=== PATIENT | female | born 1940 | race Caucasian/White ===

== ENCOUNTER → 2017-11-27 06:20 | Outpatient (CLI) | payer MEDICARE, SELFPAY ==
--- NOTE | 2017-11-27 06:28 | CDU_ITS ---
Reason For Study: CAROTID STENOSIS Rt. Velocities/BP Lt. Velocities/BP Prox CCA 85.0/11.7 cm/sec. Prox CCA 98.5/11.7 cm/sec. Mid CCA 78.6/15.8 cm/sec. Mid CCA 87.9/17.0 cm/sec. Dist CCA 65.7/14.7 cm/sec. Dist CCA 97.9/22.9 cm/sec. Prox ICA 103.0/20.5 cm/sec. Prox ICA 93.8/21.7 cm/sec. Mid ICA 117.0/31.1 cm/sec. Mid ICA 112.0/27..4 cm/sec. Dist ICA 106.0/23.6 cm/sec. Dist ICA 97.2/35.4 cm/sec. Rt. ICA/CCA = 117.0/78.6=1.5. Lt. ICA/CCA = 112.0/87.9=1.3. Prox ECA 221.0/13.1 cm/sec. Prox ECA 226.0/14.7 cm/sec. Rt. Vert. 47.5/8.25 cm/sec. Lt. Vert. 50.3/11.4 cm/sec. Right Extracranial There is heterogeneous, irregular atherosclerotic plaque noted in the right common carotid artery. There is heterogeneous, irregular atherosclerotic plaque noted in the right internal carotid artery. The atherosclerotic plaque causes acoustic shadowing. There is heterogeneous, irregular atherosclerotic plaque noted in the right external carotid artery. The atherosclerotic plaque causes acoustic shadowing. Antegrade flow is noted in the right vertebral artery. Left Extracranial There is heterogeneous, irregular atherosclerotic plaque noted in the left common carotid artery. There is heterogeneous, irregular atherosclerotic plaque noted in the left internal carotid artery. There is heterogeneous, irregular atherosclerotic plaque noted in the left external carotid artery. Antegrade flow is noted in the left vertebral artery. Procedure Carotid Duplex 14668. The exam was diagnostic. The study was technically difficult. Exam performed in department. Interpretation Summary Mild (<50%) stenosis right extracranial internal carotid. Mild (<50%) stenosis left extracranial internal carotid. Flow within the vertebral arteries is antegrade bilaterally. Ordering Physician: Vicki Cool Referring Physician: Vicki Cool Performed By: Penny Clemens, JEANNIE, RVT
--- NOTE | 2017-11-27 09:06 | STRESSREP ---
Stress Test Report Pharmacologic myocardial perfusion stress test. 77-year-old lady with a history of chest pain. Locations: Lotrel hydralazine vitamin D. Stress protocol: Resting EKG demonstrates normal sinus rhythm with a rate of 76 bpm normal intervals are noted. Blood pressure at rest was 164/92 mmHg. 0.4 mg of regadenoson was infused per usual protocol followed by rapid intravenous saline flush injection. Continuous EKG monitoring was performed. The patient maintained sinus rhythm throughout the recording with a maximum heart rate of 104 bpm which was 72% maximum predicted heart rate and a maximum workload of 1 metabolic equivalent. At rest there were no ST or T-wave changes noted to suggest abnormal flow reserve and at peak infusion no ST or T-wave changes were noted suggest abnormal flow reserve. No clinical angina was noted the final blood pressure was 158/74. Myocardial perfusion protocol. 14.4 mCi of technetium 99m sestamibi was injected at rest. 0.4 mg of regadenoson was infused per usual protocol. Peak infusion 44.8 mCi of technetium 99m sestamibi was injected stress images were obtained stress and rest images were reconstructed and compared in the short axis vertical long and horizontal long axis. Gated images were also obtained pre- Perfusion SPECT analysis: Review of the stress images demonstrate normal uptake of tracer noted in all areas of the myocardium. The resting images similarly demonstrate normal uptake of tracer noted in all areas of the myocardium. No areas of reversibility are noted suggest ischemia and no previous infarct is noted. Gated SPECT analysis: The gated ejection fraction was noted to be 71%. Conclusion: Normal pharmacologic myocardial perfusion stress test with no evidence of ischemia. Preserved ejection fraction.
== END ==
PROVIDERS: Family Provider Internal Medicine; PCP Internal Medicine; Visit Provider Internal Medicine
DX: I65.23 Occlusion and stenosis of bilateral carotid arteries (principal); R68.89 Other general symptoms and signs; I11.9 Hypertensive heart disease without heart failure; R94.31 Abnormal electrocardiogram [ECG] [EKG]
CPT/HCPCS: 78452; 93017; 93880; A9500; A4216; J2785

== ENCOUNTER → 2017-11-30 09:13 | Outpatient (CLI) | payer MEDICARE, SELFPAY ==
--- NOTE | 2017-11-30 09:17 | RDU_ITS ---
Reason For Study: HTN Right Renal Artery Left Renal Artery Right renal artery ostium 164/41.6 Left renal artery ostium 165/37.9 RSV/EDV. PSV/EDV. Right renal artery proximal Left renal artery proximal PSV/EDV 130/37.9 PSV/EDV. 166/25.7 . Right renal artery mid 175/37.9 Left renal artery mid 164/36.7 PSV/EDV. PSV/EDV . Right renal artery distal 159/36.7 Left renal artery distal 101/19.4 PSV/EDV. PSV/EDV. Right Renal Parenchyma Left Renal Parenchyma Upper Pole Medula 26.9/9.78 Left upper pole medulla 34.8/12.8 PSV/EDV. PSV/EDV . Right upper pole medulla EDR .36 . Left upper pole medulla EDR .37 . Right upper pole medulla R.I. .64 . Left upper pole medulla R.I. .63 . Upper Mane Cortx 39.2/11.4 PSV/EDV. UP Cortex 28.7/11.0 PSV/EDV. Right upper pole cortex EDR .29 . Left upper pole cortex EDR .38 . Right upper pole cortex R.I. .71 . Left upper pole cortex R.I. .62 . Right lower Pole medulla 29.6/10.0 Left lower Pole medulla 36.0/10.9 PSV/EDV . PSV/EDV . Right lower pole medulla EDR .34 . Left lower pole medulla EDR .3 . Right lower pole medulla R.I. .66 . Left lower pole medulla R.I. .7 . Lower Pole Cortex 28.7/8.66 Lower Pole Cortx 25.1/8.66 PSV/EDV. PSV/EDV. Left lower pole cortex EDR .35 . Right lower pole cortex EDR .3 . Left lower pole cortex R.I. .65 . Right lower pole cortex R.I. .7 . Left Renal Hilar Right Renal Hilar Left hilar acceleration time 73 Right hilar acceleration time 66 m/sec. m/sec. LT Hilar avg 87.1/17.6 PSV/EDV . Right Hilar avg 83.1/21.4 PSV/EDV. Left Renal Dimensions Right Renal Dimensions Left kidney size 12.5 cm . Right kidney size 12.9 cm . Left cortical dimension 1.58 cm . Right cortical dimension 1.67 cm . Aorta Proximal abdominal aorta 1.23 x 1.28 cm . Proximal abdominal aorta peak systolic velocity is 103 cm/sec . Distal abdominal aorta 1.08 x 1.03 cm . Distal abdominal aorta peak systolic velocity is 138 cm/sec . Interpretation Summary 1. Bilateral renal arteries with <60% stenosis. Ordering Physician: Vicki Cool Performed By: Garry Lombardi RVT
== END ==
PROVIDERS: Family Provider Internal Medicine; PCP Internal Medicine; Visit Provider Internal Medicine
DX: I10 Essential (primary) hypertension (principal)
CPT/HCPCS: 93975

== ENCOUNTER → 2018-01-10 12:36 | Outpatient (CLI) | payer MEDICARE, SELFPAY ==
--- NOTE | 2018-01-10 12:39 | ECHOD_ITS ---
Reason For Study: HYPERTENSION Procedure This was a 2D Doppler, Color Flow transthoracic echocardiogram. Exam performed in department. Left Ventricle Normal size and thickness. The estimated ejection fraction is 65 %. Stage 1 diastolic dysfunction. No regional wall motion abnormalities noted. Right Ventricle Normal size and thickness. Normal systolic function. Atria The left atrium is severely enlarged. Normal right atrium. Normal atrial septum. Mitral Valve Mild diffuse mitral valve thickening. Severe mitral annular calcification extending into the posterior leaflet. Trivial mitral valve insufficiency. Tricuspid Valve Normal tricuspid valve. Trivial tricuspid valve insufficiency. Right ventricular systolic pressure estimated to be 32 mmHg. Aortic Valve Trisinus/trileaflet aortic valve. Mild diffuse aortic valve thickening. Mild focal aortic valve thickening. Mild restriction of the aortic valve. Mild aortic stenosis. Pulmonic Valve Normal pulmonic valve. Great Vessels Normal aortic root. Normal arch. Normal inferior vena cava. Inferior vena cava collapse with sniff. Pericardium/Pleural No pericardial effusion. MMode/2D Measurements & Calculations LVIDd: 4.9 cm IVSd: 0.99 cm LVOT diam: 2.0 cm LVIDs: 3.2 cm LVPWd: 1.1 cm LVOT area: 3.2 cm2 RVDd: 3.2 cm FS: 34.3 % Ao root diam: 2.9 cm LAV(MOD-bp): 96.5 ml LA A4 area: 25.9 cm2 LA dimension: 5.0 cm LAV(MOD-bp) Indexed: 44.4 ml/m2 LAV(MOD-sp2): 101.2 ml LAV(MOD-sp4): 83.5 ml RA A4 area: 15.3 cm2 Doppler Measurements & Calculations MV E max santiago: 115.2 cm/sec Lat Peak E' Santiago: 9.0 cm/sec Med Peak E' Satniago: 6.3 cm/sec MV A max santiago: 136.5 cm/sec E/E' lat: 12.8 E/E' med: 18.2 MV E/A: 0.84 Ao V2 max: 233.4 cm/sec LV V1 max: 126.9 cm/sec SV(LVOT): 101.4 ml Ao max P.8 mmHg LV V1 max P.4 mmHg Ao V2 mean: 174.3 cm/sec LV V1 mean P.9 mmHg Ao mean P.9 mmHg LV V1 mean: 96.6 cm/sec Ao V2 VTI: 56.0 cm LV V1 VTI: 31.7 cm KAREN(I,D): 1.8 cm2 KAREN(V,D): 1.7 cm2 PA V2 max: 109.9 cm/sec TR max santiago: 245.7 cm/sec TR max P.3 mmHg Interpretation Summary The estimated ejection fraction is 65 %. Stage 1 diastolic dysfunction. The left atrium is severely enlarged. Trivial mitral valve insufficiency. Trivial tricuspid valve insufficiency. Right ventricular systolic pressure estimated to be 32 mmHg. Mild aortic stenosis. Compared to echo report dated 04/27/2006, no appreciable changes noted. Ordering Physician: Dilia Bonilla Referring Physician: Vicki Cool M.D. Performed By: Penny Clemens, JEANNIE, RVT
== END ==
PROVIDERS: Family Provider Internal Medicine; PCP Internal Medicine; Visit Provider Nurse Practitioner
DX: I51.9 Heart disease, unspecified (principal); R94.31 Abnormal electrocardiogram [ECG] [EKG]
CPT/HCPCS: 93306

== ENCOUNTER → 2018-03-21 08:52 | Outpatient (CLI) | payer MEDICARE, SELFPAY | PROVIDERS: Family Provider Internal Medicine; PCP Internal Medicine; Visit Provider Internal Medicine | DX: Z12.31 Encounter for screening mammogram for malignant neoplasm of breast (principal); Z78.0 Asymptomatic menopausal state; M85.80 Other specified disorders of bone density and structure, unspecified site | CPT/HCPCS: 77063; 77067; 77080 ==

== ENCOUNTER 2018-10-17 11:17 | Emergency (ER) | payer MEDICARE, SELFPAY ==
[2018-10-17 11:19] VITALS: BP 164/73; PULSE 90; RESP 17; TEMP 36.5; O2SAT 95; BMI 46.7
--- NOTE | 2018-10-17 11:35 | ED.VIS.GEN ---
History of Present Illness Chief Complaint: Lower Extremity Injury Detail of Chief Complaint: left low back pain Informant: Patient Onset: Weeks - 2-3 Context: Gradual Onset Timing: Continuous Quality: ache Location: left low back Current Severity: Moderate Maximum Severity: Moderate Worsened by: movement Relieved by: rest. icy hot & Biofreeze temporarily. Associated Symptoms: see below Narrative: No radiation into lower extremities. No bowel or bladder dysfunction. No saddle or lower extremity anesthesias/paresthesias. No abdominal/flank discomfort. No injury near the time of onset. States she saw a chiropractor and had some adjustments done which involve dropping the table a couple times, this helped with the discomfort for that day but it gradually progressed/worsened. No known history of cancer or osteoporosis. Past Medical History - Allergies and Home Meds Allergies/Adverse Reactions: Allergies No Known Allergies Allergy (Verified 10/17/18 11:19) Primary Care Physician: Vicki Cool DO [Primary Care Provider] - Smoking Status: Never smoker Review of Systems Gastrointestinal: Denies: Abdominal pain, Nausea, Vomiting Genitourinary: Denies: Dysuria, Hematuria, Frequency Musculoskeletal: Reports: Back pain. Denies: Neck pain, Swelling, Extremity Pain Skin: Denies: Rash, Wounds Neurological: Denies: Headache, Weakness, Parasthesia, Numbness Physical Exam Vital Signs/Narrative: Vital Signs Temp Pulse Resp BP Pulse Ox 10/17/18 11:19 97.7 F L 90 17 164/73 H 95 Inital Vital Signs reviewed: Yes General: Well nourished, Well developed, Obese, No Acute Distress Head: Normocephalic, Atraumatic Abdomen: Soft, Nontender, Nondistended, Normal bowel sounds Back: Nontender - affected area is left SI joint. no surrounding tenderness., Normal Inspection, - - no rash/skin lesions. Negative for: CVA tenderness, Spinal tenderness Extremities: Nontender, No edema, - - neg BLE straight leg raises while sitting. normal symmetric 2+/4 DP pulses. Very subtle length discrepancy between BLE; RLE slightly longer; less than 1cm.. Negative for: Edema, Calf Tenderness Skin: Normal color, No rash, No Trauma Neurological: Alert, Oriented x3, Cranial nerves II-XII grossly intact, Normal Strength, Normal Sensation, Normal DTR, Normal Gait Psychological: Normal affect, Normal Mood Diagnostic/Tx/Re-eval Impressions Sacrum and Coccyx X-Ray 10/17/18 11:45 IMPRESSION: Normal x-rays of the sacrum and coccyx. Electronically Signed: Naman Singh, at 12:37 EDT , Service support , Lumbar Spine X-Ray 10/17/18 11:58 IMPRESSION: Normal x-ray examination of the lumbar spine. Electronically Signed: Naman Singh, at 12:39 EDT , Service support , 10/17/18 11:45 Sacrum-Coccyx min 2 Views [RAD] Stat 10/17/18 11:58 Lumbar Spine 2 or 3 Views [RAD] Stat Laboratory Results 10/17/18 12:20 Urine Color Yellow Urine Clarity Sl. Cloudy Urine pH 6.5 Ur Specific [place] 1.015 Urine Protein Negative Urine Glucose (UA) Normal Urine Ketones Negative Urine Occult Blood Negative Urine Nitrite Negative Urine Bilirubin Negative Urine Urobilinogen Normal Ur Leukocyte Esterase 25 H Urine RBC 0 SEEN Urine WBC 0-5 SEEN Ur Squamous Epith Cells 0-5 SEEN Urine Bacteria 1+ Urine Mucus 0 SEEN - Medical Decision Making X-rays show nothing acute, urinalysis is negative. I suspect this is all musculoskeletal, and not renal or urinary in nature. My suspicion is that she has sacroiliac joint dysfunction. I think it is reasonable that she continue chiropractic treatments, she may also follow-up with her doctor and physical therapy could help with this as well. She is wanting something more for pain, she drove herself however. We discussed options. She is okay with a short supply of some [place]. Advised to follow-up. ED Disposition - Plan for ED Patient: Disposition: Home or Assisted Living Diagnosis: Sacroiliac joint dysfunction of left side Instructions: ED Sacroiliitis, Anatomy of the Sacroiliac Joint Prescriptions: Hydrocodone Bitart/Apap 5-325 [[place] 5MG-325MG] 1 tablet PO Q6H PRN PRN 3 Days #12 tablet PRN Reason: Pain Referrals: Vicki Cool, [Primary Care Provider] - 1 Week if not improving
--- NOTE | 2018-10-17 11:40 | ED.DCSUM_ITS ---
History of Present Illness Chief Complaint: Lower Extremity Injury Detail of Chief Complaint: left low back pain Informant: Patient Onset: Weeks - 2-3 Context: Gradual Onset Timing: Continuous Quality: ache Location: left low back Current Severity: Moderate Maximum Severity: Moderate Worsened by: movement Relieved by: rest. icy hot & Biofreeze temporarily. Associated Symptoms: see below Narrative: No radiation into lower extremities. No bowel or bladder dysfunction. No saddle or lower extremity anesthesias/paresthesias. No abdominal/flank discomfort. No injury near the time of onset. States she saw a chiropractor and had some adjustments done which involve dropping the table a couple times, this helped with the discomfort for that day but it gradually progressed/worsened. No known history of cancer or osteoporosis. Past Medical History - Allergies and Home Meds Allergies/Adverse Reactions: Allergies No Known Allergies Allergy (Verified 10/17/18 11:19) Primary Care Physician: Vicki Cool DO [Primary Care Provider] - Smoking Status: Never smoker Review of Systems Gastrointestinal: Denies: Abdominal pain, Nausea, Vomiting Genitourinary: Denies: Dysuria, Hematuria, Frequency Musculoskeletal: Reports: Back pain. Denies: Neck pain, Swelling, Extremity Pain Skin: Denies: Rash, Wounds Neurological: Denies: Headache, Weakness, Parasthesia, Numbness Physical Exam Vital Signs/Narrative: Vital Signs Temp Pulse Resp BP Pulse Ox 10/17/18 11:19 97.7 F L 90 17 164/73 H 95 Inital Vital Signs reviewed: Yes General: Well nourished, Well developed, Obese, No Acute Distress Head: Normocephalic, Atraumatic Abdomen: Soft, Nontender, Nondistended, Normal bowel sounds Back: Nontender - affected area is left SI joint. no surrounding tenderness., Normal Inspection, - - no rash/skin lesions. Negative for: CVA tenderness, Spinal tenderness Extremities: Nontender, No edema, - - neg BLE straight leg raises while sitting. normal symmetric 2+/4 DP pulses. Very subtle length discrepancy between BLE; RLE slightly longer; less than 1cm.. Negative for: Edema, Calf Tenderness Skin: Normal color, No rash, No Trauma Neurological: Alert, Oriented x3, Cranial nerves II-XII grossly intact, Normal Strength, Normal Sensation, Normal DTR, Normal Gait Psychological: Normal affect, Normal Mood Diagnostic/Tx/Re-eval Impressions Sacrum and Coccyx X-Ray 10/17/18 11:45 IMPRESSION: Normal x-rays of the sacrum and coccyx. Electronically Signed: Naman Singh, at 12:37 EDT , Service support , Lumbar Spine X-Ray 10/17/18 11:58 IMPRESSION: Normal x-ray examination of the lumbar spine. Electronically Signed: Naman Singh, at 12:39 EDT , Service support , 10/17/18 11:45 Sacrum-Coccyx min 2 Views [RAD] Stat 10/17/18 11:58 Lumbar Spine 2 or 3 Views [RAD] Stat Laboratory Results 10/17/18 12:20 Urine Color Yellow Urine Clarity Sl. Cloudy Urine pH 6.5 Ur Specific [place] 1.015 Urine Protein Negative Urine Glucose (UA) Normal Urine Ketones Negative Urine Occult Blood Negative Urine Nitrite Negative Urine Bilirubin Negative Urine Urobilinogen Normal Ur Leukocyte Esterase 25 H Urine RBC 0 SEEN Urine WBC 0-5 SEEN Ur Squamous Epith Cells 0-5 SEEN Urine Bacteria 1+ Urine Mucus 0 SEEN - Medical Decision Making X-rays show nothing acute, urinalysis is negative. I suspect this is all musculoskeletal, and not renal or urinary in nature. My suspicion is that she has sacroiliac joint dysfunction. I think it is reasonable that she continue chiropractic treatments, she may also follow-up with her doctor and physical therapy could help with this as well. She is wanting something more for pain, she drove herself however. We discussed options. She is okay with a short supply of some [place]. Advised to follow-up. ED Disposition - Plan for ED Patient: Disposition: Home or Assisted Living Diagnosis: Sacroiliac joint dysfunction of left side Instructions: ED Sacroiliitis, Anatomy of the Sacroiliac Joint Prescriptions: Hydrocodone Bitart/Apap 5-325 [[place] 5MG-325MG] 1 tablet PO Q6H PRN PRN 3 Days #12 tablet PRN Reason: Pain Referrals: Vicki Cool, [Primary Care Provider] - 1 Week if not improving
--- NOTE | 2018-10-17 11:45 | RAD_ITS ---
STUDY: X-RAY - SACRUM/COCCYX REASON FOR EXAM: Female, 78 years old. Low back and hip pain for 2 weeks. TECHNIQUE: 3 view(s) of the sacrum and coccyx were obtained. COMPARISON: None. FINDINGS: Normal bilateral sacroiliac joints. Normal visualized sacral ala and fused sacral bodies. Normal sacrococcygeal junction with a normal angulation. Normal coccygeal segments. The presacral soft tissue structures are unremarkable. Atherosclerotic calcification of the abdominal aorta. RAD/Sacrum-Coccyx min 2 Views IMPRESSION: Normal x-rays of the sacrum and coccyx. Electronically Signed: Naman Singh, at 12:37 EDT , Service support ,
--- NOTE | 2018-10-17 11:58 | RAD_ITS ---
STUDY: X-RAY - LUMBAR SPINE REASON FOR EXAM: Female, 78 years old. Low back and hip pain. TECHNIQUE: 3 view(s) of the lumbar spine were obtained. COMPARISON: None FINDINGS: Normal lumbar lordosis. There is no substantial scoliosis. There is a normal alignment of the vertebrae. Normal vertebral bodies and endplates. Normal disc space heights. There is atherosclerotic calcification of the abdominal aorta without a demonstrated aneurysm. RAD/Lumbar Spine 2 or 3 Views IMPRESSION: Normal x-ray examination of the lumbar spine. Electronically Signed: Naman Singh, at 12:39 EDT , Service support ,
[2018-10-17 12:26] LABS: Mucous, Urine 0 SEEN /hpf (<or=2+); Red Blood Cells-Urine 0 SEEN /hpf (0-5)
[2018-10-17 12:38] LABS: Color, Urine Yellow (Yellow); Glucose, Dipstick Normal (Normal); Ketone-Dipstick Negative (Negative); Leukocyte Esterase-Dipstick 25 /ul (Negative); Nitrite-Dipstick Negative (Negative); Occult Blood-Urine Negative /ul (Negative); Protein-Dipstick Negative (Negative); Specific Gravity, Urine 1.015 (1.002-1.030); Urine Bilirubin Dipstick Negative (Negative); Urine Clarity Sl. Cloudy (Clear); Urine Urobilinogen Normal (Normal); Urine pH 6.5 (5.0 - 8.0)
[2018-10-17 12:45] LABS: Bacteria 1+ /hpf (None Seen); Squamous Epithelial Cells - UA 0-5 SEEN /hpf (5-10); White Blood Cells 0-5 SEEN /hpf (0-5)
[2018-10-17 14:10] VITALS: PULSE 87; RESP 17; O2SAT 96
== END 2018-10-17 14:10 | disposition home or self-care (01) ==
PROVIDERS: Emergency Provider Emergency Medicine; Family Provider Internal Medicine; PCP Internal Medicine
DX: M53.3 Sacrococcygeal disorders, not elsewhere classified (principal)
CPT/HCPCS: 72100; 72220; 81001; 99282

== ENCOUNTER 2018-11-12 15:30 | Outpatient (RCR) | payer MEDICARE, SELFPAY ==
--- NOTE | 2018-11-05 10:57 | HP.PTEVAL_ITS ---
Patient's Visit Information JOSE DAVID DARDEN is a 78 year old F referred to Physical Therapy by Vicki Cool DO with a diagnosis of GREATR TROCH BURSITIS, LBP, & LAT MUSCLE SPASM. Date of Evaluation: 11/05/18 Physical Therapist: Ale Martinez, PT, Cert MDT - Visit Plan Frequency: 2-3x /Week Duration: 4-6 Weeks Plan: LEFT GREATER TROCH US, POSTURE CORRECTION/STRENGTHENING, INSTRUCTION IN APPROPRIATE BODY MECHANICS AND ACTIVITY MODIFICATIONS. DLS STARTING WITH A NEUTRAL SPINE PROGRESSING ROM TOLERATED. ECHO LE ROM, STRETCHING AND STRENGTHENING. HEP INSTRUCTION. - Subjective Findings: Work/Leisure: RETIRED. PATIENT REPORTS SHE IS PRETTY ACTIVE AND LIKES WORKING AROUND THE HOUSE AND OUTSIDE. Present symptoms: LEFT LOW BACK, HIP AND SIDE PAIN. NO NUMBNESS OR TINGLING. Present since: ABOUT 4 WEEKS AGO. Pain Scale: WORST 8/10, LEAST 2/10. Currently: 2/10. Commenced as a result of: NO APPARENT REASON. GOT OUT OF BED ONE MORNING AND HIP WAS KILLING ME. Symptoms at onset: LEFT HIP. Worse: BENDING TO PUT SOMETHING IN THE OVEN OR TAKE IT OUT, GETTING IN/OUT OF CAR, PROLONGED STANDING, DOING DISHES, WALKING. Better: SITTING, HEAT, ICE, GIRDLE. Disturbed sleep: NO. Previous history/Previous treatment: THIS IS ALL NEW. NO HISTORY OF BACK OR HIP PROBLEMS. THIS EPISODE, PATIENT REPORTS SHE WENT TO A [facility] X 2 VISITS. SEEMED TO BE OK AFTER THE FIRST VISIT BUT AFTER SECOND VISIT PATIENT REPORTS SHE WAS IN EXCRUTIATING PAIN AND HAD TO CRAWL TO THE [facility]. WENT TO ED THEN 10/17/18. Coughing/sneezing/straining: NEGATIVE. Gait: TENDENCY TO FAVOR LLE. Difficulty initiating urinatin: NO. Accidents: NO. Unexplained weight loss: NO. Imaging: ED - 10/17/18: NORMAL SACRUM AND LUMBAR X-RAYS. NO HIP X-RAYS. PMH: HTN, GLAUCOMA. Recent major surgery: UNREMARKABLE. PLOF (Prior Level of Function): UNLIMITED - Objective Sitting/Standing Posture: POOR. Lordosis: REDUCED. Lateral shift: NO. Relevant shift: N/A. Other Observations: INDEP GAIT INTO PT WITH MILD LIMP LLE. NO AD'S. NO LOB. INDEP TRANSFER SIT TO STAND EASILY WITHOUT UE ASSIST. Motor deficit: ECHO LE STRENGTH 5/5 WITH MMT'ING EXCEPT RIGHT HIP 4/5 AND LEFT HIP 4-/5. Sensory deficit: NO. ROM deficit: MILD ECHO HIP FLEXOR TIGHTNESS. Reflexes: ECHO QUADS 1/2. UNALBE TO ELICIT ECHO ACHILLES DTR'S. Dural Signs: NEGATIVE ECHO LE'S. Lumbar mvmt loss: flex - MOD. ext - MOD. R SG - MOD. L SG - MOD. Core strength: POOR. Palpation: NO ACUTE TENDERNESS OR THORACIC, LUMBAR, PELVIC OR HIP REGIONS EXCEPT MILD TENDERNESS LEFT GREATER TROCH REGION. TREATMENT: US @ 1.5 W/CM2 X 8 MIN TO LEFT GREATER TROCH REGION TODAY WITH PATIENT IN RIGHT SDLY. - Goals Goal 1:: DECREASE C/O LEFT LOW BACK, SIDE AND HIP PAIN. Goal Time Frame: 4-6 Weeks Goal 2:: IMPROVE BENDING, STANDING AND WALKING FUNCTION Goal Time Frame: 4-6 Weeks Goal 3:: INSTRUCT IN PROPHYLAXIS Goal Time Frame: 4-6 Weeks - Rehabilitation Potential Rehabilitation Potential: Good - Anticipated Interventions Patient/Client Instruction: Educate patient on: Condition, Plan of Care, Risk Factors, Benefits of Fitness Program For the Purpose of:: To improve self management Therapeutic Exercise to Include: Strength training, Body mechanics, Postural training, Flexibilty training, Active ROM, Dynamic Lumbar Stabilization For the Purpose of:: To decrease pain, To increase ROM, To improve muscle performance and motor function, To increase tolerance to activity/condition/position, To improve ability of physical actions for home/community/work/leisure Cryotherapy (ice pack, ice massage): Yes Thermo therapy (hot pack): Yes Ultrasound (thermal/non thermal): Yes For the Purpose of:: To decrease pain, To improve nutrient delivery to tissue Thank you for the opportunity to evaluate your patient. For Medicare and Medicare HMO plans, please review the plan of care and approve it. It will need to be FAXED BACK to us at [phone] for Medicare purposes. For Medicare only, by signing this I certify the plan of care. Please let me know if there are questions or concerns regarding this plan of care. Physician Signature: Date:
--- NOTE | 2018-12-11 13:29 | HP.PT.NRP ---
HP - Discharge Summary (1) - Patient Information JOSE DAVID DARDEN was seen in my office for initial evaluation on 11/05/18. The following Plan of Care was established for this patient: Initial Frequency: 2-3x /Week Initial Duration: 4-6 Weeks - Anticipated Interventions Patient/Client Instruction: Educate patient on: Condition, Plan of Care, Risk Factors, Benefits of Fitness Program For the Purpose of:: To improve self management Therapeutic Exercise to Include: Strength training, Body mechanics, Postural training, Flexibilty training, Active ROM, Dynamic Lumbar Stabilization For the Purpose of:: To decrease pain, To increase ROM, To improve muscle performance and motor function, To increase tolerance to activity/condition/position, To improve ability of physical actions for home/community/work/leisure Cryotherapy (ice pack, ice massage): Yes Thermo therapy (hot pack): Yes Ultrasound (thermal/non thermal): Yes For the Purpose of:: To decrease pain, To improve nutrient delivery to tissue This patient was last seen in our office 11/12/18. Pertinent comments regarding their Physical therapy will appear below: This patient has not returned to Physical Therapy and is appropriate to return to MD for further follow-up as needed. At this point I will be discontinuing this patient from physical therapy. I would be happy to see this patient again in the future if found appropriate by the physician. Thank you! Ale Martinez PT, Cert MDT
== END 2018-11-12 19:00 | disposition home or self-care (01) ==
LOC: PT 15:30
PROVIDERS: Family Provider Internal Medicine; PCP Internal Medicine; Visit Provider Internal Medicine
DX: M70.60 Trochanteric bursitis, unspecified hip (principal); M54.5 Low back pain; M62.838 Other muscle spasm
CPT/HCPCS: 97035; 97162; 97530

== ENCOUNTER → 2018-11-21 09:43 | Outpatient (CLI) | payer MEDICARE, SELFPAY ==
--- NOTE | 2018-11-21 09:48 | RAD_ITS ---
STUDY: X-RAY - RIGHT KNEE REASON FOR EXAM: Female, 78 years old. Pain TECHNIQUE: 4 view(s) of the knee. Weightbearing. COMPARISON: None. FINDINGS: Normal visualized distal femur. Normal visualized proximal tibia and fibula. Normal proximal tibiofibular articulation. There is mild degenerative arthrosis of the medial femorotibial compartment. There is mild degenerative arthrosis of the lateral femorotibial compartment. There is mild degenerative arthrosis of the patellofemoral articulation. The soft tissue structures are unremarkable. RAD/Knee 4 or More Views IMPRESSION: Tricompartmental degenerative changes. Electronically Signed: Keyana Dominguez MD at 6:59 EDT , Service support ,
== END ==
PROVIDERS: Family Provider Internal Medicine; PCP Internal Medicine; Referring Provider Nurse Practitioner; Visit Provider Nurse Practitioner
DX: M25.561 Pain in right knee (principal)
CPT/HCPCS: 73564

== ENCOUNTER → 2018-12-18 07:35 | Outpatient (CLI) | payer MEDICARE, SELFPAY ==
--- NOTE | 2018-12-18 07:44 | CT_ITS ---
STUDY: CTA OF THE ABDOMINAL AORTA REASON FOR EXAM: Female, 78 years old. Splenic artery aneurysm RADIATION DOSAGE (If Supplied By Facility): CTDIvol = ( 25.94 ) mGy, DLP = ( 855.40 ) mGycm TECHNIQUE: Axial CT angiography multi-detector data acquisition was obtained through the abdomen following intravenous administration of 100ml IV Isovue 370. Axial images and MIP images were reconstructed from the axial data set. Post-processing of the angiographic images was performed, with multiplanar reformation and 3D reconstruction. Individualized dose optimization techniques were used for this CT. TECHNICAL QUALITY: Good COMPARISON: 04/12/2015. FINDINGS: Abdominal aorta: Stable atherosclerotic plaque. No abdominal aortic aneurysm or dissection. Celiac and superior mesenteric arteries: Stable atherosclerotic plaques. No significant narrowing. Inferior mesenteric artery: Patent. Right renal artery(arteries): Stable atherosclerosis with less than 50% diameter ostial narrowing. Left renal artery(arteries): Stable atherosclerosis with less than 50% diameter ostial narrowing. Stable 1.0 x 0.8 cm calcified splenic artery aneurysm at the level of the splenic hilum (image 34 series 2). Right common iliac artery: There is mild diffuse narrowing. Left common iliac artery: There is mild diffuse narrowing. The lung bases are clear. The visualized portions of the heart and pericardium are within normal limits. There is a stable small hiatal hernia. The liver, spleen, pancreas, adrenal glands and kidneys are within normal limits. The visualized bowel demonstrates no evidence of obstruction. There is no abdominal free air, free fluid or lymphadenopathy. There are no destructive osseous lesions. CT/CTA Abdomen W/WO Contrast IMPRESSION: Stable 1.0 x 0.8 cm calcified splenic artery aneurysm. No evidence of abdominal aortic aneurysm or dissection. Electronically Signed: Compa Mckinney, at 19:31 EDT Tel , Service support ,
[2018-12-18 07:56] LABS: CREATININE FINGERSTICK 0.8 mg/dL (0.55-1.02); EGFR FINGERSTICK > 60.0000 mL/min (>60)
== END ==
PROVIDERS: Family Provider Internal Medicine; PCP Internal Medicine; Referring Provider Internal Medicine; Visit Provider Internal Medicine
DX: I72.8 Aneurysm of other specified arteries (principal); Z01.812 Encounter for preprocedural laboratory examination
CPT/HCPCS: 74175; Q9967

== ENCOUNTER → 2019-05-08 14:39 | Outpatient (CLI) | payer MEDICARE, SELFPAY ==
--- NOTE | 2019-05-08 14:47 | BI_ITS ---
MAMMOGRAPHY - BILATERAL SCREENING REASON FOR EXAM: Female, 78 years old. Routine annual screening examination. PERTINENT HISTORY: Non-contributory. TECHNIQUE: Digital bilateral breast stanley (3D mammographic acquisition) in the CC and MLO projections. 2-D mediolateral oblique (MLO) and craniocaudad (CC) views of both breasts were obtained. CAD: Full Field Digital Mammography with Computer Added Detection was performed. COMPARISON: Comparison is made with prior study dated March 21, 2018 and June 27, 2016. FINDINGS: Breast Composition: There are scattered areas of fibroglandular density. There are no dominant masses or suspicious calcifications. No other significant abnormalities are identified. There has been no significant change since the prior study. BI/SCREEN MAMM (CAD) W/STANLEY BILAT IMPRESSION: Stable bilateral screening mammogram. Yearly follow-up mammogram recommended. (A) ASSESSMENT CATEGORY: BIRADS Category 1: Negative. A letter regarding these results will be sent to the patient by the facility within 30 days. Approximately 10% of breast cancers are not detected by mammography. A normal mammogram should not delay biopsy of a clinically suspicious abnormality. [id number] Electronically Signed: Naman Singh, at 15:51 EDT , Service support ,
== END ==
PROVIDERS: Family Provider Internal Medicine; PCP Internal Medicine; Referring Provider Internal Medicine; Visit Provider Internal Medicine
DX: Z12.31 Encounter for screening mammogram for malignant neoplasm of breast (principal)
CPT/HCPCS: 77063; 77067

== ENCOUNTER → 2020-02-14 09:27 | Outpatient (CLI) | payer MEDICARE, SELFPAY ==
--- NOTE | 2020-02-14 09:34 | RAD_ITS ---
STUDY: X-RAY - PELVIS AND LEFT HIP REASON FOR EXAM: Female, 79 years old. LEFT HIP PAIN, NO TRAUMA TECHNIQUE: 3 views of the pelvis and hip. COMPARISON: None. FINDINGS: There is a non-specific bowel gas pattern. Normal visualized soft tissue structures. Normal bilateral iliac wings, sacroiliac joints and visualized sacrum. Normal bilateral superior and inferior pubic rami. Normal pubic symphysis. Normal bilateral ischial tuberosities. Normal visualized femoral head. Normal acetabulum. Normal hip joint. RAD/HIP, UNI W/ Pelvis 2-3 Views IMPRESSION: Normal x-ray examination of the pelvis and hip. Electronically Signed: Zack Alvarado MD at 18:43 EDT , Service support ,
== END ==
PROVIDERS: PCP Internal Medicine; Referring Provider Internal Medicine; Visit Provider Internal Medicine
DX: M25.552 Pain in left hip (principal)
CPT/HCPCS: 73502

== ENCOUNTER → 2020-08-13 14:08 | Outpatient (CLI) | payer MEDICARE, SELFPAY ==
--- NOTE | 2020-08-13 14:11 | BI_ITS ---
MAMMOGRAPHY - BILATERAL SCREENING REASON FOR EXAM: Female, 79 years old. Routine annual screening examination. PERTINENT HISTORY: Non-contributory. TECHNIQUE: Digital bilateral breast stanley (3D mammographic acquisition) in the CC and MLO projections. 2-D mediolateral oblique (MLO) and craniocaudad (CC) views of both breasts were obtained. CAD: Full Field Digital Mammography with Computer Added Detection was performed. COMPARISON: Comparison is made with prior study dated 05/08/2019 and 03/21/2018. FINDINGS: Breast Composition: There are scattered areas of fibroglandular density. There are no dominant masses or suspicious calcifications. Stable small benign-appearing bilateral axillary nodes. No other significant abnormalities are identified. There has been no significant change since the prior study. BI/SCRN MAMM (CAD)W/STANLEY BILAT IMPRESSION: Stable bilateral screening mammogram. Yearly follow-up mammogram recommended. (A) ASSESSMENT CATEGORY: BIRADS Category 2: Benign. A letter regarding these results will be sent to the patient by the facility within 30 days. Approximately 10% of breast cancers are not detected by mammography. A normal mammogram should not delay biopsy of a clinically suspicious abnormality. [id number] Electronically Signed: Naman Singh MD at 15:57 EST , Service support ,
--- NOTE | 2020-08-13 14:21 | BD_ITS ---
STUDY: DUAL ENERGY X-RAY ABSORPTIOMETRY / DXA REASON FOR EXAM: Female, 79 years old. 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 COMPARISON: Comparison is made with prior study dated 03/21/2018. FINDINGS: Lumbar Spine (L1-L4): g/cm2 (1.067) / T-score (-0.9) / Z-score (0.9) Findings are suggestive of normal bone density with a low fracture risk. Left Femur Total: g/cm2 (0.921) / T-score (-0.7) / Z-score (1.2) Left Femoral Neck: g/cm2 (0.788) / T-score (-1.8) / Z-score (0.3) Right Femur Total: g/cm2 (0.909) / T-score (-0.8) / Z-score (1.1) Right Femoral Neck: g/cm2 (0.76) / T-score (-2.0) / Z-score (0.1) The T-Scores on the most recent prior examination were: Lumbar Spine (L1-L4): There has been improvement of bone density since the previous examination. Left Femur Total: which represents an improvement of 2%. Right Femur Total: which represents a worsening of 4%. BD/Dexa Bone Density Study IMPRESSION: The patient is considered osteopenic as outlined below according to World Zach Organization (WHO) criteria with a moderate fracture risk. There has been improvement of bone density since the previous examination. Reference Information: The T-score is the number of standard deviations above or below the standard which is normal for young adults at their peak bone mineral density. The World Health Organization (WHO) interprets the T-scores as follows: Above -1 Normal bone density Between -1 and -2.5 Osteopenia Equal to / or below -2.5 Osteoporosis As a practical clinical guideline, osteopenia may be graded as follows: Mild -1 through -1.5 Moderate -1.6 through -2.0 Severe -2.1 through -2.4 The Z-score is the number of standard deviations above or below age-matched controls. A Z-score of less than -1.5 would be considered abnormal. References: 1. NIH Osteoporosis and Related Bone Diseases www osteo.org 2. International Society for Clinical Densitometry www iscd.org 3. National Osteoporosis Foundation www nof.org Electronically Signed: Naman Singh MD at 14:59 EST , Service support ,
== END ==
PROVIDERS: PCP Internal Medicine; Referring Provider Internal Medicine; Visit Provider Internal Medicine
DX: Z12.31 Encounter for screening mammogram for malignant neoplasm of breast (principal); Z78.0 Asymptomatic menopausal state
CPT/HCPCS: 77063; 77067; 77080

== ENCOUNTER → 2021-03-02 12:54 | Outpatient (CLI) | payer MEDICARE, SELFPAY ==
[2020-11-10 08:52] VITALS: BMI 40.8
--- NOTE | 2021-03-02 13:05 | CT_ITS ---
INDICATION: 80-year-old woman with SPRAIN OF OTHER SPECIFIED PARTS OF L KNEE EXAMINATION: CT BONE - CT Lower Extremity W/O Contrast Injection TECHNIQUE: Helically acquired images were obtained of the left knee. 2-D reformats were performed by the technologist. A radiation dose optimization technique was used for this scan. IV Contrast dosage and agent: None. COMPARISON: None. FINDINGS: SOFT TISSUES: No soft tissue swelling or gas. No radiopaque foreign body. BONES/JOINTS: No acute fracture or subluxation. Normal alignment. Preservation of the joint space. No significant knee joint effusion. No sclerotic or destructive changes. CT/Extremity Lower without Contra IMPRESSION: No acute fracture or subluxation. Electronically Signed: Kadeem Loza MD at 7:07 EDT Tel , Service support ,
== END ==
PROVIDERS: PCP Internal Medicine; Referring Provider Physician Assistant Surgical; Visit Provider Physician Assistant Surgical
DX: S83.8X2A Sprain of other specified parts of left knee, initial encounter (principal); S80.02XA Contusion of left knee, initial encounter
CPT/HCPCS: 73700

== ENCOUNTER → 2021-06-15 09:37 | Outpatient (CLI) | payer MEDICARE, SELFPAY ==
--- NOTE | 2021-06-15 09:47 | RAD_ITS ---
STUDY: X-RAY - LUMBAR SPINE REASON FOR EXAM: Female, 80 years old. Low back pain TECHNIQUE: 4 view(s) of the lumbar spine were obtained. COMPARISON: 10/17/2018 FINDINGS: Normal lumbar lordosis. There is no substantial scoliosis. There is a normal alignment of the vertebrae. There is multilevel endplate spondylosis of the lumbar vertebrae. There is multi-level degenerative disc disease with multi-level disc space narrowing. There is no demonstrated fracture. There is atherosclerotic calcification of the abdominal aorta without a demonstrated aneurysm. RAD/Lumbar Spine 2 or 3 Views IMPRESSION: Degenerative changes of the spine, as detailed above. No acute findings Electronically Signed: Ethan Nunez MD at 11:52 EST , Service support ,
== END ==
PROVIDERS: PCP Internal Medicine; Referring Provider Nurse Practitioner Family; Visit Provider Nurse Practitioner Family
DX: M46.96 Unspecified inflammatory spondylopathy, lumbar region (principal); M51.37 Other intervertebral disc degeneration, lumbosacral region; M54.17 Radiculopathy, lumbosacral region; M47.817 Spondylosis without myelopathy or radiculopathy, lumbosacral region
CPT/HCPCS: 72100

== ENCOUNTER 2021-08-24 11:44 | Outpatient (CLI) | payer MEDICARE, SELFPAY ==
--- NOTE | 2021-08-24 11:47 | BI_ITS ---
MAMMOGRAPHY - BILATERAL SCREENING REASON FOR EXAM: Female, 80 years old. Routine annual screening examination. PERTINENT HISTORY: Non-contributory. TECHNIQUE: Digital bilateral breast stanley (3D mammographic acquisition) in the CC and MLO projections. 2-D mediolateral oblique (MLO) and craniocaudad (CC) views of both breasts were obtained. CAD: Full Field Digital Mammography with Computer Added Detection was performed. COMPARISON: Comparison is made with prior study dated genera 2020 and 05/08/2019. FINDINGS: Breast Composition: There are scattered areas of fibroglandular density. There are no dominant masses or suspicious calcifications. No other significant abnormalities are identified. There has been no significant change since the prior study. BI/SCRN MAMM (CAD)W/STANLEY BILAT IMPRESSION: Stable bilateral screening mammogram. Yearly follow-up mammogram recommended. (A) ASSESSMENT CATEGORY: BIRADS Category 1: Negative. A letter regarding these results will be sent to the patient by the facility within 30 days. Approximately 10% of breast cancers are not detected by mammography. A normal mammogram should not delay biopsy of a clinically suspicious abnormality. [id number] Electronically Signed: Naman Singh MD at 12:53 EST ,
== END 2021-08-24 23:59 | disposition home or self-care (01) ==
LOC: OPBI 11:45
PROVIDERS: PCP Internal Medicine; Referring Provider Internal Medicine; Visit Provider Internal Medicine
DX: Z12.31 Encounter for screening mammogram for malignant neoplasm of breast (principal)
CPT/HCPCS: 77063; 77067

== ENCOUNTER 2021-09-09 15:03 | Outpatient (CLI) | payer MEDICARE, SELFPAY ==
--- NOTE | 2021-09-09 15:30 | MRI_ITS ---
STUDY: MR Spine Lumbar W/O Contrast 09/09/2021 4:16 PM REASON FOR EXAM: Female, 80 years old. Back pain RADICULOPATHY, low back pain, left hip pain TECHNIQUE: MR Spine Lumbar W/O Contrast Standardized fat and water weighted pulse sequences were obtained. COMPARISON: 06.15.21 xr FINDINGS: T12-L1: Normal endplates. Normal disc height, hydration and morphology. Normal bilateral facet joints. Normal central canal and bilateral lateral recesses. Normal bilateral intervertebral neural foramina. Normal lumbar lordosis. There is no substantial scoliosis. Normal conus medullaris that terminates at the L1. L1-2: Loss of intervertebral disc height. There is endplate spondylosis of the vertebral body. Normal central canal and intervertebral neuroforamina. There is bilateral facet arthropathy. Posterior disc bulge. L2-3: Loss of intervertebral disc height. There is endplate spondylosis of the vertebral body. Disc desiccation. Narrowing of the left neuroforamina. Left paracentral disc herniation extending into the left neural foramina. Compression of exiting left L2 nerve root. There is bilateral facet arthropathy. L3-4: Loss of intervertebral disc height. There is endplate spondylosis of the vertebral body. Normal central canal and intervertebral neuroforamina. There is bilateral facet arthropathy. L4-5: Loss of intervertebral disc height. There is endplate spondylosis of the vertebral body. Normal central canal and intervertebral neuroforamina. There is bilateral facet arthropathy. L5-S1: Loss of intervertebral disc height. There is endplate spondylosis of the vertebral body. There is bilateral facet arthropathy. Normal central canal and intervertebral neuroforamina. Normal visualized sacral ala. Mild edema of the visualized paraspinous soft tissue structures. Vertebral body hemangioma of L3, L5, and S2. Bilateral renal peripelvic cysts. MRI/Spine Lumbar (Routine) IMPRESSION: Multilevel degenerative changes, as described above. L2-3 left paracentral disc herniation causing left neural foraminal stenosis. No significant spinal stenosis. Electronically Signed: Brodie Mckeon MD at 16:21 EST ,
== END 2021-09-09 23:59 | disposition home or self-care (01) ==
PROVIDERS: PCP Internal Medicine; Visit Provider Nurse Practitioner Family
DX: M46.96 Unspecified inflammatory spondylopathy, lumbar region (principal); M51.37 Other intervertebral disc degeneration, lumbosacral region; M54.17 Radiculopathy, lumbosacral region; M47.817 Spondylosis without myelopathy or radiculopathy, lumbosacral region
CPT/HCPCS: 72148

== ENCOUNTER → 2022-03-23 | Outpatient (CLI) | payer MEDICARE, SELFPAY ==
--- NOTE | 2022-03-23 07:41 | CT_ITS ---
STUDY: CT ABDOMEN AND PELVIS WITHOUT CONTRAST REASON FOR EXAM: Female, 81 years old. PAIN -- flank pain- r/o kidney stone RADIATION DOSAGE (If Supplied By Facility): CTDIvol = ( 21.75 ) mGy, DLP = ( 1081.23 ) mGycm TECHNIQUE: Transaxial images were obtained from the dome of the diaphragm to the symphysis pubis without oral contrast, and without intravenous contrast. Sagittal and coronal images were reconstructed. Individualized dose optimization techniques were used for this CT. COMPARISON: Comparison is made with prior study dated 06/20/2016. FINDINGS: Minimal increased linear markings at the lung bases suggestive of atelectasis. Calcification of the mitral valve annulus. Coronary artery calcification. Minimal anterior pericardial thickening. Normal liver. The patient is status post cholecystectomy. Normal spleen. Normal pancreas. Normal bilateral adrenal glands. 2 mm nonobstructive calculus in the midpole calyx of the right kidney. Normal left kidney. There is a moderate-sized hiatal hernia. Normal small intestine. There are scattered colonic diverticula consistent with diverticulosis. Surgical anastomosis seen in the region of the left hemicolon. There is non-visualization of the appendix. There is diffuse atherosclerotic calcification of the abdominal aorta and its major visceral branches, without a demonstrated aneurysm. Normal inferior vena cava. Normal retroperitoneum. Normal urinary bladder. There is absence of the uterus consistent with a prior hysterectomy. Normal abdominal wall. There are mild degenerative changes of the visualized lumbar spine. CT/Abdomen/Pelvis without Cont IMPRESSION: Status post cholecystectomy. No evidence of a ureteral obstruction. Sigmoid diverticulosis. Electronically Signed: Naman Singh MD at 12:11 EDT ,
== END | disposition home or self-care (01) ==
PROVIDERS: PCP Internal Medicine; Referring Provider Internal Medicine; Visit Provider Internal Medicine
DX: R10.9 Unspecified abdominal pain (principal)
CPT/HCPCS: 74176

== ENCOUNTER → 2022-06-02 | Outpatient (CLI) | payer MEDICARE, SELFPAY ==
--- NOTE | 2022-06-02 08:42 | CDU_ITS ---
Reason For Study: carotid stenosis Rt. Velocities/BP Lt. Velocities/BP Prox CCA 80.6/18.2 cm/sec. Prox CCA 71.8/13.5 cm/sec. Mid CCA 45.6/10.7 cm/sec. Mid CCA 80.6/19.0 cm/sec. Dist CCA 62.6/14.5 cm/sec. Dist CCA 99.2/21.2 cm/sec. Prox ICA 135.7/31.6 cm/sec. Prox ICA 88.2/17.0 cm/sec. Mid ICA 135.7/24.3 cm/sec. Mid ICA 119.3/26.1 cm/sec. Dist ICA 157.6/35.3 cm/sec. Dist ICA 97.4/26.2 cm/sec. Rt. ICA/CCA = 3.5. Lt. ICA/CCA = 1.5. Prox ECA 223.7/11.1 cm/sec. Prox ECA 234.0/18.9 cm/sec. Rt. Vert. 45.4/6.9 cm/sec. Lt. Vert. 54.4/13.9 cm/sec. Right Extracranial There is heterogeneous, irregular atherosclerotic plaque noted in the right common carotid artery. There is heterogeneous, irregular atherosclerotic plaque noted in the right internal carotid artery. There is heterogeneous, irregular atherosclerotic plaque noted in the right external carotid artery. Antegrade flow is noted in the right vertebral artery. Left Extracranial There is heterogeneous, irregular atherosclerotic plaque noted in the left common carotid artery. There is heterogeneous, irregular atherosclerotic plaque noted in the left internal carotid artery. There is heterogeneous, irregular atherosclerotic plaque noted in the left external carotid artery. Antegrade flow is noted in the left vertebral artery. Procedure Carotid Duplex [id number]. This is a Carotid Duplex examination using B-mode, color flow and specral Doppler. The exam was diagnostic. Exam performed in department. VL/Carotid Duplex Ultrasound Interpretation Summary Moderate (50-69%) stenosis right extracranial internal carotid. Mild (<50%) justin nosis left extracranial internal carotid. Flow within the vertebral arteries is antegrade bilaterally. Elevated velocities in the external carotid arteries suggest stenosis >50% bilaterally. Ordering Physician: Vicki Cool Performed By: Garry Lomabrdi RVT
== END | disposition home or self-care (01) ==
LOC: CVS 08:39
PROVIDERS: PCP Internal Medicine; Referring Provider Internal Medicine; Visit Provider Internal Medicine
DX: I65.23 Occlusion and stenosis of bilateral carotid arteries (principal)
CPT/HCPCS: 93880

== ENCOUNTER → 2022-06-27 | Outpatient (CLI) | payer MEDICARE, SELFPAY ==
--- NOTE | 2022-06-27 12:49 | CT_ITS ---
STUDY: CTA HEAD AND NECK WITH CONTRAST REASON FOR EXAM: Female, 81 years old. Bilateral carotid stenosis -- changed order per CT request RADIATION DOSAGE (If Supplied By Facility): CTDIvol = ( ) mGy, DLP = ( ) mGycm TECHNIQUE: CT angiography was performed with a multi-detector CT scanner. Data acquisition was obtained from the skull base through the vertex following intravenous administration of IV 100mL Isovue-370. MIP images were reconstructed from the axial data set. Post-processing of the angiographic images was performed, with multiplanar reformation and 3D reconstruction. Individualized dose optimization techniques were used for this CT. COMPARISON: 06/02/2022 ultrasound carotid arteries , no finalizeD report available. FINDINGS: Normal bilateral petrous carotid arteries. There is calcified plaque formation of the right cavernous carotid artery, without a cross-sectional luminal stenosis. Normal left cavernous carotid artery with a normal supraclinoid bifurcation. Normal right A1 segments of the anterior cerebral artery. Normal left A1 segments of the anterior cerebral artery. Normal intact anterior communicating artery (ACOM). Normal bilateral A2 segments of the anterior cerebral arteries. Normal right M1 and M2 segments of the middle cerebral arteries, with a normal M1 bifurcation. Normal left M1 and M2 segments of the middle cerebral arteries, with a normal M1 bifurcation. In the proximal aspect of the right posterior communicating artery, there is a small focus of nonobstructive minute focus of narrowing. Image 342 series 4. There is a persistent origin of the left posterior cerebral artery with absence of the posterior communicating artery (PCOM). There is a small atretic right vertebral artery with a dominant left vertebral artery. At the level of C1 isn''t visualized structures coiled appearance of the right vertebral artery without stenosis. Normal basilar artery with a normal basilar bifurcation. The visualized bilateral superior cerebellar (SCA) arteries are normal. Normal bilateral P1, P2 and visualized P3 segments of the posterior cerebral arteries. There is no demonstrated aneurysm of the [place]. The noncontrasted portion of this exam demonstrates mild atrophy. There is a focus of low attenuation within the left-sided external capsule compatible with nonacute small vessel ischemic change. There is visualized mild cerebellar atrophy. AORTIC ARCH: There is partial calcification of the aortic arch. There is calcification of the takeoff of the left subclavian. There is mild stenosis. Normal origins of the brachiocephalic, left common carotid, and left subclavian arteries. RIGHT CAROTID ARTERIES: Normal right common carotid artery (CCA). There is moderate atherosclerotic plaque formation with moderate narrowing of the right carotid bulb. Level of the takeoff of the right internal carotid artery the visualized lumen measures approximately 2.8 mm. The study is limited as the reconstructed MIPS images are unavailable for measurements of the radiologist workstation. Measurements on standard imaging. Using Nascet criteria, is an approximately 40% narrowing of the right internal carotid artery. The right internal carotid artery is torturous. There is atherosclerotic tortuous elongation of the cervical portion of the right internal carotid artery. There is moderate to severe plaque formation at the take off of the right external carotid artery which may approach greater than 70% stenosis. LEFT CAROTID ARTERIES: There is atherosclerotic tortuous elongation of the left common carotid artery. There is calcification of the distal left common carotid artery extending to the carotid bulb. There is moderate plaque formation both calcific and soft plaque formation. The lumen of the proximal left internal carotid artery at the takeoff measures approximately 3.5 mm over a segment of 8.6 mm. There is substantial artifact at this level due to the patient''s dental amalgam. The measurement of the mid internal carotid artery is approximately 4 mm. There is mild atherosclerotic plaque formation of the origin of the left internal carotid artery with less than 50% cross sectional diameter stenosis. There is a very tortuous appearance of the left internal carotid artery which is best visualized on the reconstructed images sagittal view 135 series 606. There is moderate atherosclerotic plaque formation of the origin of the left external carotid artery with an estimated stenosis of 50-69% stenosis. VERTEBRAL ARTERIES: There is enhancement within the bilateral vertebral arteries with a small right vertebral artery, and a dominant left vertebral artery. There is visualized multilevel degenerative change within the cervical spine. The thyroid gland appears relatively homogeneous. The lung apices appear grossly normal. CT/CTA Head AND Neck W/ Contrast IMPRESSION: Nascet criteria: Approximate 40% stenosis of the right internal carotid artery. Findings are compatible with mild diameter stenosis of the left internal carotid artery. Normal CT angiogram head with the exception of a tiny focus of nonobstructive narrowing in the proximal right posterior communicating artery. Mild atrophy. Prior small vessel ischemic change in the left external capsule. Electronically Signed: Nell Zapata MD at 15:54 EST ,
[2022-06-27 14:01] LABS: CREATININE FINGERSTICK < 0.9 mg/dL (0.55-1.02); EGFR FINGERSTICK > 60.0000 mL/min (>60)
== END | disposition home or self-care (01) ==
LOC: CT 12:45
PROVIDERS: PCP Internal Medicine; Referring Provider Internal Medicine; Visit Provider Internal Medicine
DX: I65.23 Occlusion and stenosis of bilateral carotid arteries (principal); I77.1 Stricture of artery
CPT/HCPCS: 70496; 70498; Q9967

== ENCOUNTER → 2022-08-29 | Outpatient (CLI) | payer MEDICARE, SELFPAY ==
--- NOTE | 2022-08-29 13:07 | BI_ITS ---
MAMMOGRAPHY - BILATERAL SCREENING REASON FOR EXAM: Female, 81 years old. Routine annual screening examination. PERTINENT HISTORY: Non-contributory. TECHNIQUE: Digital bilateral breast stanley (3D mammographic acquisition) in the CC and MLO projections. 2-D mediolateral oblique (MLO) and craniocaudad (CC) views of both breasts were obtained. CAD: Full Field Digital Mammography with Computer Added Detection was performed. COMPARISON: Comparison is made with prior study dated 08/24/2021 and 08/13/2020. FINDINGS: Breast Composition: There are scattered areas of fibroglandular density. There are no dominant masses or suspicious calcifications. Stable small benign-appearing bilateral axillary lymph nodes. No other significant abnormalities are identified. There has been no significant change since the prior study. BI/SCRN MAMM (CAD)W/STANLEY BILAT IMPRESSION: Stable bilateral screening mammogram. Yearly follow-up mammogram recommended. (A) ASSESSMENT CATEGORY: BIRADS Category 2: Benign. A letter regarding these results will be sent to the patient by the facility within 30 days. Approximately 10% of breast cancers are not detected by mammography. A normal mammogram should not delay biopsy of a clinically suspicious abnormality. [id number] Electronically Signed: Naman Singh MD at 15:22 EST ,
== END | disposition home or self-care (01) ==
LOC: OPBI 13:38
PROVIDERS: PCP Internal Medicine; Visit Provider Internal Medicine
DX: Z12.31 Encounter for screening mammogram for malignant neoplasm of breast (principal)
CPT/HCPCS: 77063; 77067

== ENCOUNTER → 2023-02-16 | Outpatient (CLI) | payer MEDICARE, SELFPAY ==
--- NOTE | 2023-02-16 | LES_PTH ---
PATIENT: JOSE DAVID DARDEN LOC: [facility] U#:[id number] AGE/SX: 82/F ROOM: RE02/16/[address]: Yanira Emery MD : [id number] BED: DIS: 02/16/2023 SPEC #: [id number] RECD: 02/16/23 12:01 STATUS: BEATRIZ ELLEN #: [id number] ABY: 02/16/23 00:[address]: Yanira Emery DEPT: SURGICAL PATHOLOGY RECD BY: Minnie Joseph ENTERED: 02/16/23 13:33 SP TYPE: Lesion OTHR DR: Dr. Vicki Cool DO Tissues: Oral soft tissues, NOS Procedures: Special Stain Group I Surgery Specimen Level IV GMS Stain (control) HEADER OPERATION: Shave biopsy PRE-OP DIAGNOSIS: Oral mucosal lesion TISSUE SUBMITTED: Right oral mucosa MICROSCOPIC DIAGNOSIS Right oral mucosa, shave biopsy: Ulceration with associated acute inflammation, fibrinopurulent material and granulation. Rare fungal organisms present. See comment. AM:ria 02/17/2023 COMMENT GMS stain with matched control was used in the evaluation of this case. MICROSCOPIC DESCRIPTION Slides are reviewed. GROSS DESCRIPTION Received in fixative is one container labeled with the patient's name and designated right oral mucosa. The specimen consists of a piece of donis mucosal tissue measuring 0.6 x 0.5 x 0.3 cm. The entire specimen is submitted in one cassette. / SJ:ria 02/16/2023 TC:2 CPT: 21248, 80149
== END | disposition home or self-care (01) ==
LOC: LABSPEC 12:16
PROVIDERS: PCP Internal Medicine; Referring Provider Family Medicine; Visit Provider Family Medicine
DX: K13.70 Unspecified lesions of oral mucosa (principal)
CPT/HCPCS: 88305; 88312

== ENCOUNTER → 2023-05-02 | Outpatient (CLI) | payer MEDICARE, SELFPAY ==
[2023-05-02 10:13] LABS: Absolute Lymphocyte Count 1.38 X10^3/uL (0.83-4.51); Absolute Neutrophil Count 5.5 X10^3/uL (2.0-7.7); Basophil# 0.07 X10^3/uL; Basophil% 0.9 % (0-1); Eosinophil# 0.17 X10^3/uL; Eosinophils% 2.1 % (0-5); Hematocrit 45.2 % (37-47); Hemoglobin 13.9 g/dL (12.0-15.0); Lymphocyte # 1.38 X10^3/ul (0.83-4.51); Lymphocyte % 17.3 % (19-41); Mean Corp Hgb Conc 30.8 g/dL (32-36); Mean Corpuscular Hgb 26.8 pg (27.0-32.0); Mean Corpuscular Volume 87.1 fL (81-99); Mean Platelet Vol. 11.2 fl (6.2-12.0); Monocyte# 0.73 X10^3/uL; Monocyte% 9.2 % (0-10); NRBC Flagged by Analyzer 0 % (0-5); Neutrophil # 5.54 X10^3/uL (2.7-7.7); Neutrophil % 69.5 % (47-70); Platelet Count 223 K/mm3 (150-450); RBC Distribution Width CV 13.4 % (11.6-14.6); RBC Distribution Width SD 42.8 fl (35.1-43.9); Red Blood Count 5.19 M/mm3 (4.2-5.4)
[2023-05-02 12:01] LABS: ALB/GLOB Ratio 0.9 RATIO (0.9-2.4); AST(SGOT) 12 U/L (15-37); Alanine Aminotransfer ALT/SGPT 19 U/L (13-56); Albumin, Serum 3.3 g/dL (3.2-5.0); Alkaline Phosphatase 72 U/L (45-117); Anion Gap 7 (5-15); BUN 18 mg/dL (7-18); BUN/Creat Ratio 30.1 RATIO (10-20); Calcium,Total 8.4 mg/dL (8.5-10.1); Chloride 110 mmol/L (98-107); Cholesterol 156 mg/dL (200); EST Glomerular Filtration Rate 102 mL/min (>60); Est Glom Filt Rate - Afr Amer 124 mL/min (>60); Globulin 3.5 g/dL (2.2-4.2); Glucose 108 mg/dL (74-106); High Density Lipoprotein 40 mg/dL; Potassium 3.7 mmol/L (3.5-5.1); Protein, Total 6.8 g/dL (6.4-8.2); Sodium Level 141 mmol/L (136-145); Triglycerides 162 mg/dL; Very Low Density Lipoprotein 32 mg/dL (5-40)
== END | disposition home or self-care (01) ==
LOC: MFPLAB 09:03
PROVIDERS: PCP Family Medicine; Visit Provider Family Medicine
DX: I10 Essential (primary) hypertension (principal)
CPT/HCPCS: 36415; 80053; 80061; 84443; 85025

== ENCOUNTER → 2023-09-28 | Outpatient (CLI) | payer MEDICARE, SELFPAY ==
--- NOTE | 2023-09-28 14:39 | RAD_ITS ---
STUDY: X-RAY - RIGHT KNEE REASON FOR EXAM: Female, 82 years old. Knee injury. TECHNIQUE: 4 views of the right knee. COMPARISON: None. FINDINGS: Normal visualized distal femur. Normal visualized proximal tibia and fibula. Normal proximal tibiofibular articulation. There is no demonstrated fracture. There is mild degenerative arthrosis of the medial femorotibial compartment. There is mild degenerative arthrosis of the lateral femorotibial compartment. There is mild degenerative arthrosis of the patellofemoral articulation. There is a small joint effusion. There are atherosclerotic calcifications. RAD/Knee 4 or More Views IMPRESSION: Mild tricompartment degenerative arthrosis. Small joint effusion. No demonstrated fracture. Electronically Signed: Luis Manuel Pratt MD at 14:59 EDT ,
== END | disposition home or self-care (01) ==
LOC: MTRAD 14:37
PROVIDERS: PCP Family Medicine; Referring Provider Family Medicine; Visit Provider Family Medicine
DX: M25.569 Pain in unspecified knee (principal)
CPT/HCPCS: 73564

== ENCOUNTER → 2024-07-25 | Outpatient (CLI) | payer MEDICARE, SELFPAY ==
--- NOTE | 2024-07-25 12:55 | RAD_ITS ---
STUDY: X-RAY - LUMBAR SPINE REASON FOR EXAM: Female, 83 years old. Back pain. TECHNIQUE: 5 view(s) of the lumbar spine were obtained. COMPARISON: Lumbar spine x-rays dated June 15, 2021 FINDINGS: Osteopenia. Normal lumbar lordosis. Mild thoracolumbar scoliosis. Normal vertebral alignment. Diffuse mild lower thoracic and lumbosacral facet sclerosis. Intervertebral disc space narrowing most marked in the lumbar spine without significant osteophyte formation. Marked vascular calcification. RAD/L/S Spine Min 4 Views IMPRESSION: Osteopenia with mild lumbosacral spondylosis. No acute finding. Electronically Signed: Gal Mendez MD at 15:50 EST ,
== END | disposition home or self-care (01) ==
LOC: RAD 12:54
PROVIDERS: PCP Family Medicine; Referring Provider Clinical Nurse Specialist Adult Health; Visit Provider Clinical Nurse Specialist Adult Health
DX: M51.369 Other intervertebral disc degeneration, lumbar region without mention of lumbar back pain or lower extremity pain (principal)
CPT/HCPCS: 72110

== ENCOUNTER → 2024-11-07 | Outpatient (CLI) | payer MEDICARE, SELFPAY ==
[2024-11-07 17:07] LABS: ALB/GLOB Ratio 1.6 RATIO (0.9-2.4); AST(SGOT) 19 U/L (<=31); Alanine Aminotransfer ALT/SGPT 12 U/L (<=34); Albumin, Serum 4.1 g/dL (3.4-4.8); Alkaline Phosphatase 64 U/L (35-104); Anion Gap 11 (5-15); BUN 20 mg/dL (4-19); BUN/Creat Ratio 34.5 RATIO (10-20); Calcium,Total 9.3 mg/dL (7.6-11.0); Carbon Dioxide 23.8 mmol/L (21.0-32.0); Chloride 105 mmol/L (98-108); Creatinine, Serum 0.58 mg/dL (0.70-1.20); EST Glomerular Filtration Rate 90 (>60); Globulin 2.6 g/dL (2.2-4.2); Glucose 96 mg/dL (70-99); Protein, Total 6.7 g/dL (5.9-8.4); Sodium Level 140 mmol/L (133-145); Total Bilirubin 0.32 mg/dL (0.00-1.30); Vitamin B12 298 pg/mL (180-914); Vitamin D,25 Hydroxy 16.6 ng/mL (30-100)
[2024-11-07 17:23] LABS: Cholesterol 165 mg/dL (<=200); High Density Lipoprotein 44 mg/dL; Low Density Lipoprotein Calc. 89 mg/dL; Triglycerides 158 mg/dL; Very Low Density Lipoprotein 32 mg/dL (5-40); cholesterol:hdl ratio screen 3.73
[2024-11-12 14:08] LABS: Vitamin D 1,25-Dihydroxy 47.4 pg/mL (24.8-81.5)
== END | disposition home or self-care (01) ==
PROVIDERS: PCP Family Medicine; Referring Provider Family Medicine; Visit Provider Family Medicine
DX: E78.2 Mixed hyperlipidemia (principal); E55.9 Vitamin D deficiency, unspecified; I10 Essential (primary) hypertension
CPT/HCPCS: 36415; 80053; 80061; 82306; 82607; 82652

== ENCOUNTER → 2025-01-28 | Outpatient (CLI) | payer MEDICARE, SELFPAY ==
--- NOTE | 2025-01-28 14:00 | BD_ITS ---
PROCEDURE: DEXA BONE DENSITY STUDY 01/28/2025 REASON FOR EXAM: PAIN F, age 84 y/o . Postmenopausal. TECHNIQUE: DEXA BONE DENSITY STUDY COMPARISON: Prior study dated August 05, 2020. FINDINGS: BMD and T-SCORES Lumbar spine: 0.876 g/cm2, T-score -1.4 Levels: L1 through L4 Change from prior: Loss of 5%. Left femoral neck: 0.587 g/cm2, T-score -2.4 Femoral neck comparison data not recommended for monitoring change. Left total hip: 0.900 g/cm2, T-score -0.3 Change from prior: Improvement of 5%. Right femoral neck: 0.561 g/cm2, T-score -2.6 Femoral neck comparison data not recommended for monitoring change. Right total hip: 0.804 g/cm2, T-score -1 point Change from prior: Loss of 4.9%. The World Health Organization has defined the following categories based on bone density: Normal bone density: T-score equal to or greater than -1.0 Osteopenia: T-score between -1.0 and -2.5 Osteoporosis: T-score equal to or less than -2.5 The patient does meet the pharmacological treatment recommendations for prevention of osteoporosis. BD/Dexa Bone Density Study IMPRESSION: OSTEOPOROSIS. Recommend follow-up as clinically warranted. Reading Location: [id number]
--- NOTE | 2025-01-28 14:00 | BD_ITS ---
PROCEDURE: DEXA BONE DENSITY STUDY 01/28/2025 REASON FOR EXAM: PAIN F, age 84 y/o . Postmenopausal. TECHNIQUE: DEXA BONE DENSITY STUDY COMPARISON: Prior study dated August 05, 2020. FINDINGS: BMD and T-SCORES Lumbar spine: 0.876 g/cm2, T-score -1.4 Levels: L1 through L4 Change from prior: Loss of 5%. Left femoral neck: 0.587 g/cm2, T-score -2.4 Femoral neck comparison data not recommended for monitoring change. Left total hip: 0.900 g/cm2, T-score -0.3 Change from prior: Improvement of 5%. Right femoral neck: 0.561 g/cm2, T-score -2.6 Femoral neck comparison data not recommended for monitoring change. Right total hip: 0.804 g/cm2, T-score -1 point Change from prior: Loss of 4.9%. The World Health Organization has defined the following categories based on bone density: Normal bone density: T-score equal to or greater than -1.0 Osteopenia: T-score between -1.0 and -2.5 Osteoporosis: T-score equal to or less than -2.5 The patient does meet the pharmacological treatment recommendations for prevention of osteoporosis. BD/Dexa Bone Density Study IMPRESSION: OSTEOPOROSIS. Recommend follow-up as clinically warranted. Reading Location: [id number]
== END | disposition home or self-care (01) ==
LOC: OPBD 13:45
PROVIDERS: PCP Family Medicine; Referring Provider Orthopaedic Surgery Orthopaedic Surgery of the Spine; Visit Provider Orthopaedic Surgery Orthopaedic Surgery of the Spine
DX: M81.0 Age-related osteoporosis without current pathological fracture (principal)
CPT/HCPCS: 77080

== ENCOUNTER → 2025-04-01 | Outpatient (CLI) | payer MEDICARE, SELFPAY ==
--- NOTE | 2025-04-01 08:40 | MRI_ITS ---
PROCEDURE: SPINE LUMBAR (ROUTINE) 04/01/2025 REASON FOR EXAM: LUMBAR DDD AND RADICULOPATHY TECHNIQUE: Procedure Code: MRISPL Modality: MR Procedure: SPINE LUMBAR (ROUTINE) COMPARISON: MRI lumbar spine 09/09/2021. FINDINGS: Vertebrae: The vertebral bodies are preserved in height. Bilateral L5 spondylolysis. A hyperintense lesion on T2, T1 which is deleted on STIR at L5 vertebral body consistent with hemangioma. Alignment: Normal alignment. Conus Medullaris: Unremarkable. L1-2: Disc bulge. Facet joint arthropathy. No significant foraminal or canal stenosis. L2-3: Disc desiccation. Disc bulge. Facet joint arthropathy and fluid effusion. Ligamentum flavum hypertrophy. Mild inferior bilateral foramina stenosis. Minimal canal stenosis. L3-4: Disc bulge. Facet joint arthropathy and ligamentum flavum hypertrophy. No significant foraminal or canal stenosis. L4-5: Disc bulge. Facet joint arthropathy and ligamentum flavum hypertrophy. Moderate bilateral foramina stenosis. Narrowing of the right subarticular space. Moderate to severe canal stenosis. L5-S1: Facet joint arthropathy with fluid effusion. No significant foraminal or canal stenosis. Sacrum: Unremarkable. MRI/Spine Lumbar (Routine) IMPRESSION: Degenerate changes, predominantly at L4-L5 where there is moderate to severe ca nal stenosis, narrowing of the right subarticular space and moderate bilateral foramina stenosis. These findings have progressed compared to MRI 09/09/2021. Reading Location: [id number]
== END | disposition home or self-care (01) ==
PROVIDERS: PCP Family Medicine; Referring Provider Clinical Nurse Specialist Adult Health; Visit Provider Clinical Nurse Specialist Adult Health
DX: M51.16 Intervertebral disc disorders with radiculopathy, lumbar region (principal)
CPT/HCPCS: 72148

== ENCOUNTER → 2025-04-17 | Outpatient (CLI) | payer MEDICARE, SELFPAY ==
--- NOTE | 2025-04-17 11:52 | CT_ITS ---
PROCEDURE: EXTREMITY LOWER WITHOUT CONTRA 04/17/2025 REASON FOR EXAM: KNEE PAIN TECHNIQUE: Procedure Code: CTELWO Modality: CT Procedure: EXTREMITY LOWER WITHOUT CONTRA Coronal and Sagittal reconstruction series were provided. CONTRAST: VOLUME: mL One or more dose reduction techniques were used (e.g., Automated exposure control, adjustment of the mA and/or kV according to patient size, use of iterative reconstruction technique). RADIATION DOSE SUMMARY: CTDlvol: 56 mGy DLP: 1282 mGycm FINDINGS: Calcific atherosclerosis in the right lower extremity. No definite intrapelvic abnormality. No fracture about the hip. Mild marginal osseous ridging off the right acetabulum. Mild right hip joint space narrowing. Right knee joint effusion. Marginal osseous ridging about all 3 compartments of the right knee. Narrowing of the collateral compartment. 11 mm osseous internal body in the lateral femoral notch. Subcortical degenerative cysts in the superior patella. Lateral patellar positioning. No evidence of fracture. Mild plantar and posterior calcaneal spurring. Mild marginal osseous ridging about the ankle, compatible with mild arthrosis. No periarticular cystic changes about the ankle. Mild posterior facet subtalar joint arthrosis. Medial band plantar fascial thickening and tendinosis with adjacent soft tissue edema and possible scarring. No significant talonavicular joint arthrosis. CT/Extremity Lower without Contra IMPRESSION: Medial band plantar fascial thickening and tendinosis with soft tissue edema an d possible scarring. Mild plantar calcaneal spurring. Tricompartment knee joint arthrosis with effusion and internal body. Lateral patellar positioning. Clinical correlation for patellofemoral stress/t racking abnormality is recommended. Mild marginal osseous ridging off the right acetabulum, compatible with mild ar throsis. Calcific atherosclerosis in the right lower extremity. No evidence of fracture. Reading Location: [facility]
== END | disposition home or self-care (01) ==
PROVIDERS: PCP Family Medicine; Referring Provider Specialist; Visit Provider Specialist
DX: M25.561 Pain in right knee (principal); M17.11 Unilateral primary osteoarthritis, right knee; M21.061 Valgus deformity, not elsewhere classified, right knee
CPT/HCPCS: 73700

== ENCOUNTER 2025-05-12 07:11 | Observation (INO) | payer MEDICARE, SELFPAY ==
--- NOTE | 2025-04-17 11:53 | EKG12_ITS ---
Test Reason : PREOP Blood Pressure : */* mmHG Vent. Rate : 65 BPM Atrial Rate : 65 BPM P-R Int : 168 ms QRS Dur : 116 ms QT Int : 402 ms P-R-T Axes : 32 -21 44 degrees QTcB Int : 418 ms Sinus rhythm with Premature ventricular complexes or Fusion complexes Incomplete left bundle branch block Borderline ECG Confirmed by Alexander Gonsalez ([id number]), publishing editor MIRTHA DUNBAR ([id number]) on 04/18/2025 7:22:22 AM Referred By: Compa Chowdhury Confirmed By: Alexander Gonsalez
[2025-04-17 12:13] LABS: Hematocrit 45.7 % (37-47); Hemoglobin 14.7 g/dL (12.0-15.0); Immature Granulocytes Count 0.070 X10^3/uL (0.0-0.0); Mean Corp Hgb Conc 32.2 g/dL (32-36); Mean Corpuscular Volume 85.6 fL (81-99); Mean Platelet Vol. 11.2 fl (6.2-12.0); NRBC Flagged by Analyzer 0 % (0-5); Platelet Count 228 K/mm3 (150-450); RBC Distribution Width CV 14.0 % (11.6-14.6); RBC Distribution Width SD 43.6 fl (35.1-43.9); Red Blood Count 5.34 M/mm3 (4.2-5.4); White Blood Count 7.0 K/mm3 (4.4-11.0)
[2025-04-17 12:41] LABS: Albumin, Serum 4.1 g/dL (3.4-4.8); Anion Gap 10 (5-15); BUN 19 mg/dL (4-19); BUN/Creat Ratio 30.7 RATIO (10-20); Calcium,Total 8.7 mg/dL (7.6-11.0); Carbon Dioxide 25.6 mmol/L (21.0-32.0); Chloride 106 mmol/L (98-108); Glucose 113 mg/dL (70-99); Potassium 4.0 mmol/L (3.3-5.1)
[2025-04-17 12:55] LABS: Magnesium 1.9 mg/dL (1.5-2.2)
--- NOTE | 2025-04-17 17:29 | PAT.ANESEVAL ---
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 When Was Last Pacemaker Check QUESTION #4 FULL TEXT: You/Your Family Experience fever (hyperthermia) with Anesthesia Last Oral Intake Last Oral intake: Last Oral Intake NPO since Meds taken in AM with sips of water? Meds patient instructed to take am of surgery PONV PONV - axle bearing polisher: PONV - axle bearing polisher Female Yes 04/14/25 10:58 HX of Motion Sickness No 04/14/25 10:58 HX of N/V After Surgery Yes 04/14/25 10:58 Non-Smoker Yes 04/14/25 10:58 Duration of Surgery greater Yes 04/14/25 10:58 than 60 minutes Number of Risk Factors 4 04/14/25 10:58 PONV Score Severe Risk 04/14/25 10:58 Height & Weight Height & Weight: Anesthesia: Height & Weight Height 5 ft 5.5 in 11/07/24 14:17 Respiratory Assessment Respiratory Assessment - axle bearing polisher: Respiratory Tract Infection Hx - axle bearing polisher Hx Respiratory Tract Infection No 04/14/25 10:58 STOP Sleep Apnea STOP Sleep Apnea - axle bearing polisher: STOP Sleep Apnea - axle bearing polisher Hx Hypertension Yes: on meds 04/14/25 10:58 Hx Sleep Apnea No 04/14/25 10:58 CPAP No 05/09/24 15:18 BIPAP No 05/09/24 15:18 Do you snore loudly (louder No 04/14/25 10:58 than talking or can be heard Do you often feel tired/ No 04/14/25 10:58 fatigued/ sleepy during daytime? Has anyone observed you stop No 04/14/25 10:58 breathing during sleep? STOP Results Negative 04/14/25 10:58 QUESTION #5 FULL TEXT : Do you snore loudly (louder than talking or can be heard through closed doors)? 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 Specify any problems Hx of Preganancy in last 3 No 04/14/25 10:58 Months Nurse Filling Out Transfusion JZOLLANDRIY 04/14/25 10:58 & Questions: Date: 04/14/25 04/14/25 10:58 Time: 11:04 04/14/25 10:58 Patient unable to answer at this time (ie. confused, unrespo /Reproduction History /Reproductive History - axle bearing polisher: /Reproductive Hx- axle bearing polisher Hx Now No 04/14/25 10:58 Gestational Age (in weeks): EDC: Hx Hx Para Hx Section SAB No 04/14/25 10:58 PFS Medical History (Updated 04/14/25 @ 10:58 by Ethel Herrera) Wears glasses Ambulates with cane Non-smoker History of stress test History of echocardiogram Acid reflux Asthma COPD (chronic obstructive pulmonary disease) SOB (shortness of breath) Hypertension Arthritis Back problem Fatigue Melena Nausea Epigastric pain Glaucoma Home Medications Medication Instructions Recorded Last Taken Type amlodipine 10 mg-benazepril 40 mg 1 capsule PO DAILY 01/14/14 Unknown History capsule albuterol sulfate 90 mcg/actuation 2 puff inhalation Q6H PRN 10/27/20 Unknown History aerosol inhaler (Proventil HFA) shortness of breath or wheezing bimatoprost 0.03 % eye drops 1 drp ophthalmic (eye) DAILY 10/27/20 Unknown History calcium carbonate (Calcium 600) 600 mg PO DAILY 10/27/20 Unknown History hydralazine 25 mg tablet 25 mg PO .qd 10/27/20 Unknown History aspirin 81 mg tablet,delayed 81 mg PO DAILY 07/19/22 Unknown History release atorvastatin 80 mg tablet 80 mg PO QHS #90 tabs 07/19/22 Unknown Rx tramadol 50 mg tablet 50 mg PO BID PRN pain 11/07/24 Unknown History multivitamin (Daily Value tablet) 1 tab PO DAILY 04/14/25 Unknown History Allergy/AdvReac Type Severity Reaction Status Date / Time codeine Allergy Severe Nausea/Vom/ Verified 04/14/25 10:49 Diarrhea Family History Father Heart disease Hypertension Emphysema/COPD Mother Parkinsons disease Brother Parkinsons disease Surgical History (Updated 04/14/25 @ 10:58 by Ethel Herrera) Hx of colonoscopy Hx of appendectomy Hx of eye surgery History of partial colectomy Hx of cholecystectomy Social History Smoking Status: Never smoker second hand exposure: No alcohol intake: never substance use type: does not use caffeine: Yes what type of physical activity do you participate in: none frequency: does not exercise Audit: Pertinent Findings Pertinent Findings EKG Perinent findings: April 17, 2025. Sinus rhythm with PVCs or fusion complexes. Incomplete left bundle branch block. Compared to EKG of 2008, fusion complexes, PVCs, and incomplete left bundle branch block are all new. Stress test pertinent findings: 11/27/17. EF of 71%. No areas of reversibility to suggest ischemia. No previous infarct. Echo (EF%) pertinent findings: 01/10/2018. EF is 65%. RVSP is 32 mmHg. Mild aortic stenosis. Recommendation Anesthesia Recommendation Anesthesia recommendation: OPTIMIZED for anesthesia
--- NOTE | 2025-05-11 21:44 | HP.PCM_ITS ---
History and Physical History and Physical Patient Name: Mitra Harris AultDOB: 1940 From: DATE OF PRE-OPERATIVE EXAM: 05/06/2025 DATE OF SURGERY: 05/12/2025 SCHEDULED PROCEDURE: Robotic assisted right total knee arthroplasty HISTORY OF PRESENT ILLNESS: Patient is an 84-year-old female presenting for preoperative visit for right knee arthroplasty. Patient states that her pain is intermittent, stabbing. Patient states that doing stairs, walking short distances, standing at the sink and still her pain is worse. Patient states that sitting, resting, elevating helped to alleviate the pain. Patient states that just getting off of the right leg seems to help. Patient states that she is no longer able to bathe, shower, do housework, shop, garden without difficulty. Patient states that she has stumbled due to her right knee. Patient states that she feels unsafe doing outside work such as tending to the palacio and watering her palacio because of the knee. Patient states that she has tried rest, ice, elevation, corticosteroid injection, oral medications with help. Patient states that she has tried physical therapy, home exercises, gel injections with no help. Patient states she has not tried chiropractic. Patient states that she has received at least 4 series of gel injections. Patient denies any surgeries on the affected joint. Patient states she has used a cane for 6 months due to the problem. Patient states that she has tried a knee brace due to the issue. REVIEW OF SYSTEMS: Review Of Systems: Constitutional: Denies anorexia, anxiety, change in appetite, fever and weight change,hard of hearing, and vision problems. Cardiovasular: Denies chest pain, heart murmur, irregular heartbeat and peripheral vascular disease. Respiratory: Reports cough and wheezing, but denies asthma, pneumonia, sleep apnea, shortness of breath and tuberculosis. Gastrointestinal: Reports nausea, but denies constipation, diarrhea, heartburn, bloody stools and vomiting, and difficulty swallowing. Genitourinary: . (F Genital Sx) Denies incontinence. Musculoskeletal: Reports leg swelling, trouble walking and pain. Skin: Reports history of shingles, but denies Raynaud's and tattoo. Neurological: Denies ambulatory dysfunction, dizziness, numbness/tingling and tremor. Psychiatric: Denies anxiety, depression, insomnia, mental illness and stress. Hematologic/Lymphatic: Denies anemia, bleeding/bruising tendency and past transfusion. Reviewed, no changes. PAST MEDICAL HISTORY: Advance Care Plan: Other Directive, LIVING WILL Effective Date: 11/28/2018 Other Directive, POA Effective Date: 11/28/2018 Past Medical History: Medical Problems: Arthritis, High Blood Pressure, Acid Reflux, Asthma, Gout, Osteoporosis, Covid- 19 Vaccine Accidents: Fell Off Ladder Surgical Hx: Hysterectomy - [facility] Laser Eye Surgery - 09/09/05 [facility] Gallbladder - 03/2009 [facility] Colon Resection, Knee Arthroscopy LT Anesthesia Complications: None Assistive Devices: Glasses Reviewed, no changes. 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 Personal Habits: Cigarette Use: Never.Smokeless Tobacco: Never Used Smokeless Tobacco.E-Cigarette Use: Never used.Alcohol: Denies use.Drug Use: Denies Use.Enjoy Exercising: Exercises 1-3 x/month. Reviewed, no changes. VITALS: Ht: 65" Wt: 238lb Wt k.957 BMI: 39.6 BP: 132/84 Pulse: 81 Resp: 13 T: 96.8 T: 36.0C Pain Level: 8/10 O2SatR: 95 ALLERGIES: Black Pepper Codeine MEDICATIONS: Hydralazine HCL 25 mg 1 tab po bid, Vitamin D3 1po qday, Amlodipine Besylate/Benazepril Hydrochloride 10-40 mg, Tramadol HCL 50 mg, Meclizine HCL 25 mg, Prednisone 20 mg, Alendronate Sodium 70 mg, Baby Asprin 1 a day, Tylenol 325 mg prn, Aleve prn, Naproxen 250 mg prn PRE-OP EXAM: General appearance:NORMAL Other: Eyes: Conjunctivae and lids: NORMAL Pupils: ERR Ears, Nose, Mouth, and Throat: NORMAL Other: Inspection of lips, teeth and gums: NORMAL Other: Neck: Examination of neck: no masses noted. Respiratory: Assessment of respiratory effort: NORMAL Other: Auscultation of lungs: clear to auscultation no wheezes, rhonchi or rales. Cardiovascular: Auscultation of heart: regular rate and rhythm, no murmurs, gallops or rubs. Exam of carotid arteries: NORMAL Other: Gastrointestinal: Exam of abdomen: soft, nontender, nondistended bowel sounds present. Lymphatic: Palpation of nodes in neck: NORMAL Other: Palpation of nodes in Axillae: NORMAL Other: Neurological: see below Psychiatric: Orientation to time, place and person: NORMAL Other: Mood and affect: NORMAL Other: PHYSICAL EXAMINATION: Musculoskeletal: Right knee: Correct alignment. 3mm lateral collateral laxity, 1mm medial collateral laxity. Range of motion 0 to 115 degrees. Moderate effusion over the lateral joint line. IMAGING STUDIES: -4 views of the right knee with sunrise, lateral, and bilateral standing AP and tunnel views reviewed reveal valgus alignment and lateral joint space narrowing, subchondral sclerosis and osteophyte formation consistent with severe stage IV [id number] erosive osteoarthritis. On bilateral standing AP and tunnel films of the contralateral knee taken for comparison show varus alignment and medial joint space narrowing, subchondral sclerosis and osteophyte formation consistent with moderate stage III osteoarthritis IMPRESSION: Hypertension Gastroesophageal reflux disease Asthma Osteoporosis History of gout Pain right knee Primary osteoarthritis right knee Obesity Valgus deformity right knee PLAN: The surgeon did discuss and review all treatment options with the patient including surgical versus nonsurgical. At this time the patient does wish to proceed with the above-stated procedure. Potential risks benefits and complications of the procedure were discussed and reviewed with the patient including but not limited to , infection, nerve and blood vessel damage, persistent pain, numbness, tingling, paresthesias, blood clot, pulmonary embolism, in the requirement for possible further surgery. Patient expressed full understanding. Has no further questions for the doctor. Does agree to proceed with the above-stated procedure, and has signed the appropriate surgery consent form. DVT prophylaxis: Patient will be using aspirin 81 mg twice daily for 4 weeks postoperatively, patient will also be wearing PENNY hose for 2 weeks postoperatively. Pain medications: Patient will be using Tylenol 1000 mg every 8 hours, meloxicam for 30 days postoperatively, oxycodone as needed for pain control. Patient was educated during this time she needs to put the tramadol away and was educated not to take the narcotic pain medications together. Patient was educated on the use of famotidine for 30 days postoperatively. Patient was educated on the use of senna for postoperative constipation. ___ I have re-examined the patient. There are no clinical changes since date of exam. ___ See progress notes for changes. ___ Dictated on admission Date: Time: Signature:
[2025-05-12] VITALS (18 sets, daily range): BP systolic 106–143; BP diastolic 52–88; PULSE 65–96; RESP 8–18; TEMP 36.1–36.9; O2SAT 93–96; BMI 38.3
[2025-05-12] MEDS: LR 1,000 ML - BOLUS PREOP 999 ML IV (10:29)
[2025-05-12] MEDS: Magnesium 2 GM for ERAS IV (10:29)
--- NOTE | 2025-05-12 11:08 | PCM.PRE.AN2 ---
ASA Classification* ASA Classification ASA Classification: 3 Assessment & Plan Anesthesia* Anesthesia Assessment Anesthesia Assessment: Discussed sedation and/or anesthesia options, risks, benefits, and alternatives with patient/parents/legal guardian/POA. Questions invited. The patient/parents/legal guardian/POA seems to understand and agrees to proceed with anesthesia plan. Reviewed the physical assessment, medical history, allergy history and patient home medications list prior to surgery/procedure/anesthetic and documented any changes. Performed airway and anesthesia risk assessments. Anesthesia Type Anesthesia Type: General (Patient has a history of mild aortic stenosis. Avoid increased heart rate decrease blood pressure. Phenylephrine is drug of choice.) and Block ( Consented for adductor canal block.) History Source History Obtained from:: Patient and Chart Anesthesia Focused Assessment* Temperature: 98.5 F Pulse Rate: 78 Blood Pressure: 131/83 Respiratory Rate: 16 Pulse Ox: 96 Oxygen Delivery Method: Room Air Airway Assessment Mouth opens: >3 cm Mallampati Score: III Teeth Condition: Caps/Crowns (Patient has couple crowns. They are tight. #9 is a veneer and it is tight.) and Missing (Couple missing teeth.) Neck Range of motion (ROM): Limited ROM (Somewhat Decreased) Labs Anesthesia Preop lab: CBC WBC, (4.4-11.0) 7.0 K/mm3 04/17/25, 11:45 RBC, (4.2-5.4) 5.34 M/mm3 04/17/25, 11:45 Hgb, (12.0-15.0) 14.7 g/dL 04/17/25, 11:45 Hct, (37-47) 45.7 % 04/17/25, 11:45 Plt Count, (150-450) 228 K/mm3 04/17/25, 11:45 CHEMISTRY Potassium, (3.3-5.1) 4.0 mmol/L 04/17/25, 11:45 Sodium, (133-145) 142 mmol/L 04/17/25, 11:45 Magnesium, (1.5-2.2) 1.9 mg/dL 04/17/25, 11:44 BUN, (4-19) 19 mg/dL 04/17/25, 11:45 Creatinine, (0.70-1.20) 0.60 mg/dL L 04/17/25, 11:45 Glucose, (70-99) 113 mg/dL H 04/17/25, 11:45 POC Glucose, (74-106) 82 mg/dL Today, 10:16 TSH, (0.358-3.74) 2.30 uIU/mL 05/02/23, 09:04 COAG Pre-Assessment Diagnosis/Proposed Procedure Planned Operative Procedure(s): R) ROBOTIC ASSISTED RIGHT TOTAL KNEE ARTHROPLASTY Anesthesia History 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 When Was Last Pacemaker Check QUESTION #4 FULL TEXT: You/Your Family Experience fever (hyperthermia) with Anesthesia Last Oral Intake Last Oral intake: Last Oral Intake NPO since 07:15 05/12/25 10:18 Meds taken in AM with sips of Yes 05/12/25 10:18 water? Meds patient instructed to take am of surgery Any additional information?: Yes Meds taken in AM with sips of water?: Yes PONV PONV - infrastructure analyst: PONV - infrastructure analyst Female Yes 04/14/25 10:58 HX of Motion Sickness No 04/14/25 10:58 HX of N/V After Surgery Yes 04/14/25 10:58 Non-Smoker Yes 04/14/25 10:58 Duration of Surgery greater Yes 04/14/25 10:58 than 60 minutes Number of Risk Factors 4 04/14/25 10:58 PONV Score Severe Risk 04/14/25 10:58 Height & Weight Height & Weight: Anesthesia: Height & Weight Height 5 ft 5 in 05/12/25 10:18 Weight: 104.6 kg 05/12/25 10:18 Body Mass Index (BMI) 38.3 05/12/25 10:18 Respiratory Assessment Respiratory Assessment - infrastructure analyst: Respiratory Tract Infection Hx - infrastructure analyst Hx Respiratory Tract Infection No 04/14/25 10:58 STOP Sleep Apnea STOP Sleep Apnea - infrastructure analyst: STOP Sleep Apnea - infrastructure analyst Hx Hypertension Yes: on meds 04/14/25 10:58 Hx Sleep Apnea No 04/14/25 10:58 CPAP No 05/09/24 15:18 BIPAP No 05/09/24 15:18 Do you snore loudly (louder No 04/14/25 10:58 than talking or can be heard Do you often feel tired/ No 04/14/25 10:58 fatigued/ sleepy during daytime? Has anyone observed you stop No 04/14/25 10:58 breathing during sleep? STOP Results Negative 04/14/25 10:58 QUESTION #5 FULL TEXT : Do you snore loudly (louder than talking or can be heard through closed doors)? 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 Specify any problems Hx of Preganancy in last 3 No 04/14/25 10:58 Months Nurse Filling Out Transfusion JZOLLANDRIY 04/14/25 10:58 & Questions: Date: 04/14/25 04/14/25 10:58 Time: 11:04 04/14/25 10:58 Patient unable to answer at this time (ie. confused, unrespo /Reproduction History /Reproductive History - infrastructure analyst: /Reproductive Hx- infrastructure analyst Hx Now No 04/14/25 10:58 Gestational Age (in weeks): EDC: Hx Hx Para Hx Section SAB No 04/14/25 10:58 Active Medications Active Medications: Current Medications Generic Name Dose Route Start Last Admin Trade Name Freq PRN Reason Stop Dose Admin Acetaminophen 1,000 mg 05/12/25 12:00 05/12/25 10:30 Acetaminophen 500 Mg Tablet PO 05/12/25 12:01 1,000 mg PREOP ONE Administration Acetaminophen 1,000 mg 05/12/25 07:15 Acetaminophen 500 Mg Tablet PO Q8H [facility] Aspirin 81 mg 05/12/25 10:00 Aspirin 81 Mg Tab.Chew PO BID [facility] Celecoxib 400 mg 05/12/25 12:00 05/12/25 10:31 Celecoxib 200 Mg Capsule PO 05/12/25 12:01 400 mg PREOP ONE Administration Sodium Chloride 77.9 ml/ 0 ml 05/12/25 12:00 Ropivacaine 200 mg/ OPERA.SITE 05/12/25 12:01 Epinephrine HCl 0.6 mg/ INTRAOP ONE Ketorolac Tromethamine 30 mg/ Morphine Sulfate 5 mg Dexamethasone Sodium Phosphate 10 mg 05/12/25 12:00 Dexamethasone 10 Mg/Ml Vial IV 05/12/25 12:01 INTRAOP ONE Enteral Nutritional Formula 237 ml 05/12/25 12:00 Ensure Surgery 237 Ml Liquid PO TIDCM [facility] Gabapentin 600 mg 05/12/25 12:00 05/12/25 10:31 Gabapentin 600 Mg Tablet PO 05/12/25 12:01 600 mg PREOP ONE Administration Lactated Ringer's 1,000 mls @ 999 mls/hr 05/12/25 12:00 05/12/25 10:29 IV 05/12/25 13:00 999 mls/hr .Q1H1M JAMILA Administration Cefazolin Sodium 2 gm/ Sodium 110 mls @ 150 mls/hr 05/12/25 12:00 Chloride IV 05/12/25 12:43 INTRAOP ONE Tranexamic Acid 1,000 mg/ 110 mls @ 660 mls/hr 05/12/25 12:00 Sodium Chloride IV 05/12/25 12:09 INTRAOP ONE Tranexamic Acid 1,000 mg/ 110 mls @ 660 mls/hr 05/12/25 12:00 Sodium Chloride IV 05/12/25 12:09 INTRAOP ONE Lactated Ringer's 1,000 mls @ 999 mls/hr 05/12/25 12:00 IV 05/12/25 13:00 .Q1H1M JAMILA Lactated Ringer's 1,000 mls @ 125 mls/hr 05/12/25 12:00 IV 05/12/25 19:59 .Q8H [facility] Magnesium Sulfate 2 gm/ 104 mls @ 208 mls/hr 05/12/25 12:00 05/12/25 10:29 Dextrose IV 05/12/25 12:29 208 mls/hr PREOP ONE Administration Cefazolin Sodium 1 gm in 50 mls @ 100 mls/hr 05/12/25 07:15 IV 05/12/25 15:44 Q8H [facility] Insulin Human Lispro 1 - 6 unit 05/12/25 12:00 Insulin Lispro 100 Unit/Ml Insuln.Pen SC Q4H PRN PRN BG>/= 180, SEE PROTOCOL Protocol Ketorolac Tromethamine 15 mg 05/12/25 09:00 Ketorolac 15 Mg/Ml Vial IV Q6H PRN PRN Pain Score 1-10 Meloxicam 7.5 mg 05/14/25 10:00 Meloxicam 7.5 Mg Tablet PO BID [facility] Morphine Sulfate 2 - 4 mg 05/12/25 07:11 Morphine 2 Mg/Ml Syringe IV Q2H PRN PRN Pain Score 4-10 Ondansetron HCl 4 mg 05/12/25 07:11 Ondansetron 4 Mg/2 Ml Vial IV Q6H PRN PRN NAUSEA/VOMITING Oxycodone HCl 5 - 10 mg 05/12/25 07:11 Oxycodone 5 Mg Tablet PO Q4H PRN PRN Pain Score 4-10 Promethazine HCl 12.5 mg 05/12/25 07:11 Promethazine 25 Mg Tablet PO Q6H PRN PRN NAUSEA/VOMITING Promethazine HCl 12.5 mg 05/12/25 07:11 Promethazine 25 Mg/Ml Syringe IM Q6H PRN PRN NAUSEA/VOMITING Senna/Docusate Sodium 2 tablet 05/12/25 10:00 Senna/Docusate Sodium 1 Tablet PO BID [facility] PFSH Medical History Wears glasses Ambulates with cane Non-smoker History of stress test History of echocardiogram Acid reflux Asthma COPD (chronic obstructive pulmonary disease) SOB (shortness of breath) Hypertension Arthritis Back problem Fatigue Melena Nausea Epigastric pain Glaucoma Home Medications Medication Instructions Recorded Last Taken Type amlodipine 10 mg-benazepril 40 mg 1 capsule PO DAILY 01/14/14 05/12/25 07:30 History capsule albuterol sulfate 90 mcg/actuation 2 puff inhalation Q6H PRN 10/27/20 Unknown History aerosol inhaler (Proventil HFA) shortness of breath or wheezing bimatoprost 0.03 % eye drops 1 drp ophthalmic (eye) DAILY 10/27/20 05/11/25 History calcium carbonate (Calcium 600) 600 mg PO DAILY 10/27/20 05/11/25 History hydralazine 25 mg tablet 25 mg PO .qd 10/27/20 05/12/25 07:15 History aspirin 81 mg tablet,delayed 81 mg PO DAILY 07/19/22 05/12/25 07:30 History release tramadol 50 mg tablet 50 mg PO BID PRN pain 11/07/24 Unknown History multivitamin (Daily Value tablet) 1 tab PO DAILY 04/14/25 05/05/25 History Allergy/AdvReac Type Severity Reaction Status Date / Time codeine Allergy Severe Nausea/Vom/ Verified 05/12/25 10:15 Diarrhea Family History Father Heart disease Hypertension Emphysema/COPD Mother Parkinsons disease Brother Parkinsons disease Surgical History Hx of colonoscopy Hx of appendectomy Hx of eye surgery History of partial colectomy Hx of cholecystectomy Social History Smoking Status: Never smoker second hand exposure: No alcohol intake: never substance use type: does not use caffeine: Yes what type of physical activity do you participate in: none frequency: does not exercise Review of Systems (Anesthesia) ROS Narrative System reviewed and no additional complaints, except as documented. Physical Exam Resp clear to auscultation bilaterally
[2025-05-12] MEDS: Midazolam 2 MG/2 ML Syringe IV (11:50)
[2025-05-12] MEDS: Cefazolin 1 GM/5 ML Vial 2 GM IV (11:57)
[2025-05-12] MEDS: JPS (Morphine 10mg/ml) OPERA.SITE (12:50)
[2025-05-12] MEDS: TRANEXAMIC ACID 1,000 MG/10 ML ML 2000 MG IV (13:01)
--- NOTE | 2025-05-12 13:11 | PCM.OPRPT ---
Operative Report (Standard) Operative Information Date of Procedure: 05/12/25 Pre-Operative Diagnosis: Right knee primary osteoarthritis Post-Operative Diagnosis: Right knee primary osteoarthritis Surgery/Procedure Performed: Right knee minimally invasive robotic assisted total arthroplasty pathology tech: Yes Packing And Wrapping Supervisor: Candace Lucas Tasks completed by starch treating assistant: Other (See body of operative report) Additional occupational therapist's assistant?: Yes Additional Log Chain Feeder #2: Andreia Mcmillan Tasks completed by occupational therapist's assistant #2: Opening and Retracting Additional occupational therapist's assistant?: No Type of Anesthesia: Spinal RN Documented Start/Stop Times: Operation Date: 05/12/25 12:00 Case Time Into Pre-Op 05/12/25 10:04 Anesthesia Start 05/12/25 11:57 Into Room 05/12/25 11:57 Procedure Start 05/12/25 12:22 Procedure End 05/12/25 13:52 Anesthesia End 05/12/25 14:01 Out of Room 05/12/25 14:01 Into Recovery 05/12/25 14:03 Out of Recovery 05/12/25 16:16 Procedure Start Time: 12:22 Procedure Stop Time: 13:52 Select all DRAINS/GRAFTS/IMPLANTS that apply: Prosthetic device Prosthetic device details: See body of operative report Special Medications: 2 g Ancef, 1 g TXA at incision, 1 g TXA closure, 10 mg Decadron, joint cocktail (5 mg Duramorph, 30 mL of 0.5% Ropivicaine, 1000 units of epinephrine, 30 mg of Toradol) Estimated Blood Loss: 200 Fluids Replaced: 1500 mL crystalloid Specimen collected: Yes Description of specimen(s) removed: Bony cuts Description of surgery: Implants used: 1. Fowler size 3 triathlon cruciate retaining distal femoral press-fit component 2. Valorie size 4 press-fit tritanium tibial baseplate 3. Fowler X3 9 mm CS polyethylene Brief history operative indications: 84-year-old F with history of right knee osteoarthritis with radiographic findings with loss of joint space, osteophyte formation and subchondral sclerosis. Failed conservative measures as mentioned in the H&P. Discussion of total knee arthroplasty as well as risk and benefits were discussed the patient including but not limited to blood loss, DVTs, PEs, neurovascular damage, general risk of anesthesia including loss of life, and stiffness or instability were discussed with patient. Patient demonstrated understanding and was able to sign informed consent. Procedure: On the date of procedure patient's right lower extremity was marked in the preoperative area. The patient was then taken back to the operating room where the patient was placed on the table in the supine position. All bony prominences were identified a well-padded. Anesthesia assumed control of the C-spine and airway and remained controlled throughout the remainder of the procedure. A tourniquet was placed on the right upper thigh and the leg was prepped in a sterile fashion. The surgeon then scrubbed at this time .Upon reentering the room right lower extremity was draped in a standard orthopedic fashion. A timeout was then called and everyone agreed upon the side, the site, the procedure to be performed, patient's identity and antibiotics given. Esmarch bandage was used to exsanguinate the extremity and the tourniquet was placed up to 250 mmHg with the knee in flexion. A midline skin incision was made and sharp dissection was taken down through skin subcutaneous tissue and fat. The standard medial parapatellar incision was made and the patella was subluxed laterally. An Appropriate deep MCL release was done and the fat pad was resected. Our attention was then directed to the patella. The patella was everted and and found to have appropriate cartilage for retention The knee was then flexed up in 2 femoral pins were placed inside the incision and 2 tibial pins were placed outside the incision in the medial tibia bicortically. Once this was completed the 2 checkpoints in the femur and tibia were placed. Knee was then flexed up and the bony landmarks were registered. Once this was completed knee was taken through range of motion and manually stressed allowing us to a plan for an appropriate tibial cut. The robotic arm was brought into the field sterilely and checkpoint and saw were registered. Based on the patient's deformity the tibial cut was made in 1 degree of varus. At this time the tensioner was then placed in the joint and ligament tension was checked at 90 degrees and full extension. Based on the patient's ligamentous tension appropriate adjustments were made to the operative plan and ligament releases were done. Once we were happy with our operative plan with balanced flexion and extension gaps our attention was directed to the femur. The robot was brought into the field sterilely and registered. Posterior condylar cuts, anterior chamfer cuts and anterior cuts were appropriately made for a size 3 femur. When these were completed the saws were switched out in the distal femoral and posterior chamfer cuts were made. Protecting the soft tissue throughout this time. A size 4 tibial base plate was selected. the knee was flexed to 90 degrees and the soft tissues and posterior osteophytes were removed from the joint. 40 cc of the periarticular injection was injected into the posterior medial corner of the joint. The appropriate trials were then placed on the femur and tibia. A trial polyethylene was trialed to ensure proper balancing and stability of the knee. The appropriate tibial internal rotation was then marked with a bovie. Our attention was then directed to the patella. Patellar tracking was checked and deemed appropriate. Once we were happy lug holes were drilled for the femur and trial components were removed. The tibia was subluxed and pinned into place and the keel was punched and drilled appropriately. Final components were verified and opened. The wound was copiously irrigated with normal saline. When the cement was ready the components were impacted into place starting with the tibia then the femur. The trial poly component was placed and the knee was placed in full extension. Once the the implants were secured, the tracking, alignment and balance were verified and a size 9 mm CS polyethylene component was placed. Once the final components were placed a 3-minute dilute Betadine lavage was performed followed by an Irrisept lavage was performed and the wound was copiously irrigated with normal saline solution and the periarticular injection was given. The wound was closed in a layer geiger fashion using #1 vicryl interrupted sutures for the arthrotomy, 2-0 interrupted Vicryl suture for the subcuticular layer and primo for final skin closure. A sterile compressive dressing was then placed. The patient was then awakened from anesthesia, transferred to the [facility] and transferred to the PACU for recovery. Post op plan DVT ppx: ASA 81mg BID, thigh high compression stockings Follow up: in office in 2 weeks for wound check PT: to start POD #0 at hospital, outpatient PT should be arranged. My physician occupational therapist's assistant was a vital part of this case, they was important because there was not another skilled set of hands available to their training and aptitude needed for safe and appropriate completion of this case. They were important in appropriate retraction during the case, and protection of soft tissues during bony cuts. In particular the experience and skill of this occupational therapist's assistant made for safe retraction and exposure during implantation of medical implants without damage to vital soft tissues or structures. His intimate knowledge of the case and my steps aided in safe and expedient completion of the procedure as well as appropriate position of the leg during the case. He was also vital in assisting with closure under my direct supervision. Due to the complexity of this case robotic arm was used to assist in the surgery to improve accuracy and clinical outcomes. Surgical Findings: Stage IV osteoarthritis. Stable knee with good patella tracking Complications Complications: No Admit VTE Documentation VTE Present on Admission: No VTE Mechan Device Prophylaxis: SCD's and Thigh High PENNY Hose VTE Pharm Prophylaxis ordered?: Yes
[2025-05-12] MEDS: fentaNYL 100 MCG/2 ML Ampul 200 MCG IV (13:52)
--- NOTE | 2025-05-12 14:04 | PCM.POST.ANE ---
Anesthesia: Postop Eval I Current Vital Signs Temperature: 97.6 F Pulse Rate: 92 Blood Pressure: 130/77 Respiratory Rate: 18 Pulse Ox: 96 Assessment Airway patent: Yes Spontaneous unlabored respirations: Yes nausea: No Vomiting: No Anesthesia Complication: No Fluid Hydration Crystalloid volume administer (ml): 1,500 Total IV fluid infused: 1,500 Progress Note Anesthesia document: Postop Eval 1 completed: No
[2025-05-12] MEDS: LR 1,000 ML - BOLUS POSTOP 999 ML IV (14:13)
--- NOTE | 2025-05-12 14:15 | RAD_ITS ---
PROCEDURE: KNEE 1 OR 2 VIEWS 05/12/2025 REASON FOR EXAM: TKA TECHNIQUE: Procedure Code: RADK Modality: DX Procedure: KNEE 1 OR 2 VIEWS Laterality: Right knee COMPARISON: None FINDINGS: The patient is status post right total knee replacement. There is good alignment. Postoperative soft tissue changes. RAD/Knee 1 or 2 Views IMPRESSION: Status post right total knee replacement. There is good alignment. Postoperative soft tissue changes. Reading Location: [facility]
--- NOTE | 2025-05-12 16:01 | PCM.CONS.GEN ---
Assessment & Plan Assessment/Plan (1) Status post right knee replacement: PLAN: Plan Patient is an 84-year-old female who presented to [facility] on 05/12/2025 for planned right knee replacement. Medicine consulted postoperatively for medical management. 1. Right knee primary osteoarthritis – Orthopedic surgery primary. S/p right knee total arthroplasty with Dr. Chowdhury on 05/12. Tolerated procedure well, no intraoperative complications noted. Postoperative pain control, DVT prophylaxis and further management per orthopedics. Follow-up a.m. labs. PT/OT/case management consulted. 2. Hypertension – Normotensive postoperatively. Will continue home amlodipine. Will hold home benazepril and hydralazine for now, can restart as BP improves. 3. Asthma – Stable postoperatively, not in acute exacerbation. Continue home inhalers as needed. 4. Class II obesity – BMI 38 on admit. Complicates hospital course and care. DVT prophylaxis: Baby aspirin twice daily per orthopedics Total clinical time spent by myself addressing the patient's medical issues, reviewing all the data, and collaborating with patient's care team: 37 minutes. HPI Consult Data Date of Consult: 05/12/25 HPI Narrative Reason for Consultation: Postoperative medical management HPI Narrative: JOSE DAVID DARDEN, is a 84 F who presented to [facility] on 05/12/2025 for planned orthopedic procedure. Medicine consulted postoperatively for medical management. Patient had right knee total arthroplasty done with Dr. Chowdhury today. Tolerated procedure well, no intraoperative complications noted. I saw the patient at bedside this evening. Patient was mildly fatigued appearing but otherwise sitting back comfortably in bed, conversing normally, in no acute distress. She noted that her right knee still felt numb and she denied any pain or discomfort. She did report some dry mouth and throat soreness and was chewing gum to help with this. Denied any other acute concerns currently. [facility] Medical History Wears glasses Ambulates with cane Non-smoker History of stress test History of echocardiogram Acid reflux Asthma COPD (chronic obstructive pulmonary disease) SOB (shortness of breath) Hypertension Arthritis Back problem Fatigue Melena Nausea Epigastric pain Glaucoma Home Medications Medication Instructions Recorded Last Taken Type amlodipine 10 mg-benazepril 40 mg 1 capsule PO DAILY 01/14/14 05/12/25 07:30 History capsule albuterol sulfate 90 mcg/actuation 2 puff inhalation Q6H PRN 10/27/20 Unknown History aerosol inhaler (Proventil HFA) shortness of breath or wheezing bimatoprost 0.03 % eye drops 1 drp ophthalmic (eye) DAILY 10/27/20 05/11/25 History calcium carbonate (Calcium 600) 600 mg PO DAILY 10/27/20 05/11/25 History hydralazine 25 mg tablet 25 mg PO .qd 10/27/20 05/12/25 07:15 History aspirin 81 mg tablet,delayed 81 mg PO DAILY 07/19/22 05/12/25 07:30 History release tramadol 50 mg tablet 50 mg PO BID PRN pain 11/07/24 Unknown History multivitamin (Daily Value tablet) 1 tab PO DAILY 04/14/25 05/05/25 History Allergy/AdvReac Type Severity Reaction Status Date / Time codeine Allergy Severe Nausea/Vom/ Verified 05/12/25 10:15 Diarrhea Family History Father Heart disease Hypertension Emphysema/COPD Mother Parkinsons disease Brother Parkinsons disease Surgical History Hx of colonoscopy Hx of appendectomy Hx of eye surgery History of partial colectomy Hx of cholecystectomy Social History Smoking Status: Never smoker second hand exposure: No alcohol intake: never substance use type: does not use caffeine: Yes what type of physical activity do you participate in: none frequency: does not exercise ROS Constitutional Constitutional: Denies chills, fatigue, fever(s) or weakness Cardiovascular Cardiovascular: Denies chest pain Respiratory/Chest Respiratory/Chest: Denies shortness of breath at rest Gastrointestinal Gastrointestinal: Denies abdominal pain Musculoskeletal Musculoskeletal: Denies arthralgias, joint pain or myalgias Neurologic Neurologic: Denies dizziness, focal weakness, headache(s), numbness or tingling Physical Exam Const alert, oriented x3 and no apparent distress Constitutional Narrative: Elderly female, class II obesity, mildly fatigued appearing, otherwise sitting back comfortably in bed, conversing normally, in no acute distress. General Appearance: cooperative and comfortable HEENT normocephalic, head/scalp atraumatic, hearing grossly normal bilaterally, nasal mucous membranes and turbinates normal and moist oral mucous membranes Eyes PERRL, EOMs intact bilaterally and conjunctivae normal Neck full ROM Chest inspection of chest normal Resp normal respiratory effort, normal air movement, no use of accessory muscles and clear to auscultation bilaterally Cardio regular rate, regular rhythm, no murmurs and peripheral pulses 2+ throughout GI normal to inspection, nondistended, normoactive bowel sounds, soft to palpation, non-tender and non-distended Back/Spine normal ROM Extremity Extremity Narrative: Right knee with surgical dressing and ice pack in place. Skin no rashes or lesions noted Psych mental status grossly normal Lab / Micro Data 04/17/25 11:45 04/17/25 11:45 Labs: Laboratory Results - last 24 hr 05/12/25 10:16: POC Glucose 82 Imaging Radiology Impression Knee X-Ray 05/12/25 14:15 IMPRESSION: Status post right total knee replacement. There is good alignment. Postoperative soft tissue changes. Reading Location: [id number] Charges/Coding Visit Charges Inpatient E&M: 05747 Subs Hosp L2
[2025-05-12] MEDS: LR 1,000 ML - 125 ML/HR (POST BOLUS) POST OP IV (16:12)
--- NOTE | 2025-05-12 17:49 | POSTOPAN2_ITS ---
Anesthesia Postop Eval I Sum Postop Eval Completion status Anesthesia document: Postop Eval 1 completed: No Anesthesia Postop Eval I Summary Anesthesia Postop Eval I Summary: Anesthesia Postop Eval I: Assessment Summary Airway patent Yes 05/12/25 14:04 MACHINING [email or web address] Spontaneous unlabored Yes 05/12/25 14:04 MACHINING MANAGER.CSIR respirations Mental status nausea No 05/12/25 14:04 MACHINING MANAGER.CSIR Vomiting No 05/12/25 14:04 MACHINING MANAGER.CSIR Anesthesia Postop Eval I: Fluid Summary Crystalloid volume administer 1,500 05/12/25 14:04 MACHINING MANAGER.CSIR (ml) Colloids volume administered ( ml) Blood Product volume administered (ml) Total IV fluid infused 1,500 05/12/25 14:04 MACHINING MANAGER.CSIR Anesthesia Postop Eval I: Summary Notes Anesthesia Complication No 05/12/25 14:04 MACHINING MANAGER.CSIR Anesthesia Complication Comment: Post-operative progress note Anesthesia: Postop Eval II Evaluation Mental status: Awake and Calm Pain Level: 1 nausea: No Vomiting: No Complications Anesthesia Complication: No
--- NOTE | 2025-05-12 17:49 | PCM.POSTANE2 ---
Anesthesia Postop Eval I Sum Postop Eval Completion status Anesthesia document: Postop Eval 1 completed: No Anesthesia Postop Eval I Summary Anesthesia Postop Eval I Summary: Anesthesia Postop Eval I: Assessment Summary Airway patent Yes 05/12/25 14:04 DISPLAY SCREEN [email or web address] Spontaneous unlabored Yes 05/12/25 14:04 DISPLAY SCREEN [email or web address].CSIR respirations Mental status nausea No 05/12/25 14:04 DISPLAY SCREEN FABRICATOR.CSIR Vomiting No 05/12/25 14:04 DISPLAY SCREEN [email or web address].CSIR Anesthesia Postop Eval I: Fluid Summary Crystalloid volume administer 1,500 05/12/25 14:04 DISPLAY SCREEN [email or web address].CSIR (ml) Colloids volume administered ( ml) Blood Product volume administered (ml) Total IV fluid infused 1,500 05/12/25 14:04 DISPLAY SCREEN [email or web address].CSIR Anesthesia Postop Eval I: Summary Notes Anesthesia Complication No 05/12/25 14:04 DISPLAY SCREEN [email or web address].CSIR Anesthesia Complication Comment: Post-operative progress note Anesthesia: Postop Eval II Evaluation Mental status: Awake and Calm Pain Level: 1 nausea: No Vomiting: No Complications Anesthesia Complication: No
[2025-05-12] MEDS: Cefazolin 1 GM/50 ML BAG IV (20:49)
[2025-05-12] MEDS: Latanoprost 0.005% 1 Bottle 1 DRP OPHTHALMIC (20:50)
[2025-05-12] MEDS: Senna/Docusate Sodium 1 Tablet 2 TABLET PO (20:51)
[2025-05-13 00:16] VITALS: BP 157/93; PULSE 91; RESP 16; TEMP 35.7; O2SAT 98
[2025-05-13] MEDS: Cefazolin 1 GM/50 ML BAG IV (04:01)
[2025-05-13 04:04] VITALS: BP 138/63; PULSE 63; RESP 16; TEMP 35.7; O2SAT 93
[2025-05-13 06:07] LABS: Hematocrit 40.9 % (37-47); Hemoglobin 13.3 g/dL (12.0-15.0); Mean Corp Hgb Conc 32.5 g/dL (32-36); Mean Corpuscular Volume 84.3 fL (81-99); Mean Platelet Vol. 11.4 fl (6.2-12.0); Platelet Count 204 K/mm3 (150-450); RBC Distribution Width CV 13.5 % (11.6-14.6); RBC Distribution Width SD 41.8 fl (35.1-43.9); Red Blood Count 4.85 M/mm3 (4.2-5.4); White Blood Count 15.9 K/mm3 (4.4-11.0)
[2025-05-13 06:46] LABS: Anion Gap 9 (5-15); BUN 27 mg/dL (4-19); BUN/Creat Ratio 45.7 RATIO (10-20); Calcium,Total 8.2 mg/dL (7.6-11.0); Carbon Dioxide 24.1 mmol/L (21.0-32.0); Chloride 102 mmol/L (98-108); Estimated Creatinine Clearance 63.96 ml/min (50-250); Glucose 133 mg/dL (70-99); Potassium 4.6 mmol/L (3.3-5.1)
[2025-05-13] MEDS: Senna/Docusate Sodium 1 Tablet 2 TABLET PO (07:33)
[2025-05-13 08:31] VITALS: BP 177/83; PULSE 73; RESP 16; TEMP 36.5; O2SAT 94
--- NOTE | 2025-05-13 08:47 | PCM.PN.ORT ---
Subjective Subjective Patient is sitting comfortably in bedside chair upon examination. Patient states that she has been doing well at this point. Patient states that she does feel like she would be comfortable with going home at this point. Patient states that she has not worked with physical therapy yet but has been up with her longer going to the bathroom. Patient states that her pain is adequately controlled. Patient denies any shortness of breath, chest pain, calf pain. Patient denies any fevers, chills, signs of infection. Patient denies any numbness or tingling. Patient denies any nausea, vomiting, dizziness. Patient denies any adverse events overnight. Objective Data Objective Data Vital Signs: Vital Signs Temp Pulse Resp BP Pulse Ox O2 Del Method O2 Flow Rate 97.7 F L 73 16 177/83 H 94 Room Air 2 05/13/25 08:31 05/13/25 08:31 05/13/25 08:31 05/13/25 08:31 05/13/25 08:31 05/13/25 08:31 05/13/25 04:04 Oxygen Flow Rate (L/min) 2 Oxygen Delivery Method Room Air Weight: 104.6 kg Body Mass Index (BMI) 38.3 Intake & Output: Intake and Output for Last 24 Hours 05/11/25 05/12/25 05/13/25 23:59 23:59 23:59 Intake Total 3654 / 3654 1400 / 1400 Output Total 206 / 206 Balance 3448 / 3448 1400 / 1400 Lab / Micro Data 05/13/25 05:54 05/13/25 05:54 Labs: Laboratory Results - last 24 hr 05/12/25 10:16: POC Glucose 82 05/13/25 05:54: WBC 15.9 H, RBC 4.85, Hgb 13.3, Hct 40.9, MCV 84.3, MCH 27.4, MCHC 32.5, RDW Std Deviation 41.8, RDW Coeff of Quiana 13.5, Plt Count 204, MPV 11.4, Sodium 136, Potassium 4.6, Chloride 102, Carbon Dioxide 24.1, Anion Gap 9, BUN 27 H, Creatinine 0.59 L, Estim Creat Clear Calc 63.96, Est GFR (MDRD) Non-Af 89, BUN/Creatinine Ratio 45.7 H, Glucose 133 H, Calcium 8.2 Micro: Microbiology 04/17/25 11:45 Swab (Method) Nasal Screen MRSA/MSSA - Final Radiography Diagnostic Testing: Radiology Impression Knee X-Ray 05/12/25 14:15 IMPRESSION: Status post right total knee replacement. There is good alignment. Postoperative soft tissue changes. Reading Location: [id number] Physical Exam Narrative PENNY hose in place bilaterally SCDs in place bilaterally Mepilex dressing is with mild drainage at the distal one third of the dressing. Dorsiflexion and plantarflexion are performed actively without pain or restriction Sensation intact light touch. Neurovascularly intact overall. Negative Homans bilaterally. Const alert, oriented x3 and no apparent distress Assessment & Plan Assessment/Plan (1) Status post right knee replacement: PLAN: Status post right total knee arthroplasty day 1 DVT prophylaxis: Patient will be taking aspirin 81 mg twice daily for 4 weeks postoperatively. Patient denies any history of DVT or PE. Patient will be wearing PENNY hose for 2 weeks postoperatively. Patient was educated she can remove PENNY hose for showering and at bedtime. Pain medications: Patient will be taking Tylenol 1000 mg every 8 hours, meloxicam, oxycodone as needed for postoperative pain control. Patient is in pain management and was educated to avoid taking any tramadol at this time while she is on oxycodone postoperatively. Patient voiced understanding. Constipation: Patient was instructed to take senna as instructed until her first bowel movement and then can as needed. Patient was educated if she has not had a bowel movement in 3 days to call our office for reevaluation. Physical therapy: Patient will be weightbearing as tolerated with walker with physical therapy. Patient will need to get outpatient physical therapy established. H&H: 13.3/40.9. Vital signs are stable and patient is afebrile. Reactive leukocytosis: White blood cell count is currently 15.9. Patient did receive Decadron intraoperatively. Patient vital signs are stable and patient is afebrile. Incentive spirometer: Patient was encouraged to use incentive spirometer every hour that they wake for the first week to exercise lungs decreased risk of postoperative lung infection Dressings: Patient was educated to remove dressing on postop day 5. Patient was educated to avoid doing any soaking, submerging for 6 weeks. Patient was educated to avoid any lotions, salves, oils for 6 weeks. Patient is a follow-up for postoperative instructions. Medicine doctor is currently on board for safe and proper discharge. Case management is currently on board for safe and proper discharge. Disposition: We will plan for discharge at this time as long as pain maintains adequately controlled, patient works with and does well with physical therapy, and is okay per medicine doctor. Patient does plan to go home with her . Patient also states that she has 2 sons that will be coming to check on her often. Both patient and her states that they feel comfortable with her going home at this point. Patient will continue to be weightbearing as tolerated with physical therapy. Patient does have a 2-week follow-up visit scheduled with our office. Patient's medications will be sent to patient's pharmacy of choice. Patient was encouraged to call with any questions, concerns, new problems.
--- NOTE | 2025-05-13 08:48 | PCM.PN.HOSP ---
Subjective Subjective Doing well, no issues overnight. Pain is controlled Objective Data Objective Data Vital Signs: Vital Signs Temp Pulse Resp BP Pulse Ox O2 Del Method O2 Flow Rate 97.7 F L 73 16 177/83 H 94 Room Air 2 05/13/25 08:31 05/13/25 08:31 05/13/25 08:31 05/13/25 08:31 05/13/25 08:31 05/13/25 08:31 05/13/25 04:04 Oxygen Flow Rate (L/min) 2 Oxygen Delivery Method Room Air Weight: 230 lb 9.656 oz Body Mass Index (BMI) 38.3 Intake & Output: Intake and Output for Last 24 Hours 05/12/25 05/13/25 05/14/25 03:59 03:59 03:59 Intake Total 4804 / 4804 250 / 250 Output Total 206 / 206 Balance 4598 / 4598 250 / 250 Lab / Micro Data 05/13/25 05:54 05/13/25 05:54 Labs: Laboratory Results - last 24 hr 05/12/25 10:16: POC Glucose 82 05/13/25 05:54: WBC 15.9 H, RBC 4.85, Hgb 13.3, Hct 40.9, MCV 84.3, MCH 27.4, MCHC 32.5, RDW Std Deviation 41.8, RDW Coeff of Quiana 13.5, Plt Count 204, MPV 11.4, Sodium 136, Potassium 4.6, Chloride 102, Carbon Dioxide 24.1, Anion Gap 9, BUN 27 H, Creatinine 0.59 L, Estim Creat Clear Calc 63.96, Est GFR (MDRD) Non-Af 89, BUN/Creatinine Ratio 45.7 H, Glucose 133 H, Calcium 8.2 Micro: Microbiology 04/17/25 11:45 Swab (Method) Nasal Screen MRSA/MSSA - Final Radiography Diagnostic Testing: Radiology Impression Knee X-Ray 05/12/25 14:15 IMPRESSION: Status post right total knee replacement. There is good alignment. Postoperative soft tissue changes. Reading Location: [facility] Physical Exam Narrative General: Alert, Oriented x3, Cooperative, No apparent distress HEENT: Atraumatic, PERRLA, EOMI, Normocephalic Oral: Moist Mucosa Neck: Supple, No JVD Lungs: Diminished, Normal air movement, No rhonchi, No wheeze, No rales Cardiovascular: Regular rate, Regular Rhythm, Normal S1, Normal S2, No murmurs Neurological: No focal neurological deficits, moves all extremities Psych/Mental Status: Normal Affect, Appropriate Assessment & Plan Assessment/Plan (1) Status post right knee replacement: PLAN: Plan 1. Right knee osteoarthritis status post total knee arthroplasty on 05/12/2025 – PT/OT – Pain management per primary – DVT is baby aspirin twice daily per Ortho – Medically stable for discharge – Does have a reactive leukocytosis which is to be expected 2. Essential HTN – Will restart her home blood pressure medications – Renal function stable 3. Asthma – Not in exacerbation – Continue with her home inhalers – Stable postoperatively, not in acute exacerbation. Continue home inhalers as needed. DVT: Baby aspirin 25 minutes was spent on direct patient care, including documentation as well as chart review and collaboration with colleagues Charges/Coding Visit Charges Office Visits / Consults: [id number] OV L3 Est 20min
[2025-05-13] MEDS: Ensure Surgery 237 ML LIQUID PO (08:53)
[2025-05-13 08:54] VITALS: PULSE 73
--- NOTE | 2025-05-13 08:54 | DCINST_ITS ---
Discharge Instructions DC O2, CPAP, BIPAP needs Home O2 Discharge instructions: No Dressing / Incision Discharge Activity: May Not Drive (No driving for 6 weeks postoperatively.) Weight Bearing Status: Weight bearing as tolerated (With walker. ) Keep extremity elevated above heart level: Right Leg (Ice and elevate as needed.) Dressing / Incision Call your doctor if your incision/area has: Continuous Slow Oozing, Sudden Increased Bleeding, Increased Pain/ Swelling, Increased Redness, Foul Smelling Discharge and Swelling at the incision site Call your doctor if you observe: Fever of 101 or Higher, Coldness, Increased Pain, Numbness or Tingling, Change in Color, Inability to urinate, Inability to have a bowel movement, Using more than 1 pad per hour, Shortness of breath, Dizziness, Fainting spells, Swelling in the ankles, Chest pain, Increased palpitations (irregular heartbeat), Calf discomfort and Uncontrolled pain Remove Dressing in: 5 days (Remove dressing on day 5 postop. As long as incision is clean, dry, intact may leave open to air.) Cleanse incision/area with: Soap & Water (Gentle soap and water in the shower.) Additional Dressing/Incision Instructions:: No soaking or submerging for 6 weeks postoperatively. No lotions, salves, oils for 6 weeks postoperatively. OARRS report was reviewed today. Follow Up Care Test Results: Test results from this visit will be discussed in further detail at your follow- up appointment, if applicable. Discharge Plan Admission Admit Date/Time: 05/12/25 14:35 Attending Provider: Compa Chowdhury Primary Care Provider: Yanira Emery Consulting Providers: Juanjo Diaz Discharge Orders/Prescriptions Prescriptions: New acetaminophen 500 mg Tablet 1,000 mg PO Q8 Qty: 0 0RF Rx Instructions: 1000 mg every 8 hours. No more than 30 in 24 hours. meloxicam 7.5 mg Tablet 7.5 mg PO BID 30 Days Qty: 60 0RF Rx Instructions: Do not take with any other anti-inflammatory medications. aspirin 81 mg Tablet,Chewable 81 mg PO BIDCM Qty: 0 0RF Rx Instructions: Take aspirin 81 mg twice daily for 4 weeks postoperatively for blood clot prevention. sennosides-docusate sodium [Stimulant Laxative Plus] 8.6-50 mg Tablet 2 tab PO BID Qty: 0 0RF Rx Instructions: Take until first bowel movement and then can take as needed. oxycodone 5 mg Tablet 5 - 10 mg PO Q4H PRN PRN (Reason: As needed for pain) 7 Days Qty: 42 0RF Continued hydralazine 25 mg tablet 25 mg PO .qd albuterol sulfate [Proventil HFA] 90 mcg/actuation HFA aerosol inhaler 2 puff INHALATION Q6H PRN (Reason: shortness of breath or wheezing) calcium carbonate [Calcium 600] 600 mg calcium (1,500 mg) tablet 600 mg PO DAILY bimatoprost 0.03 % drops 1 drp OPHTHALMIC DAILY tramadol 50 mg tablet 50 mg PO BID PRN (Reason: pain) amlodipine-benazepril 1 CAPSULE capsule 1 capsule PO DAILY multivitamin [Daily Value] Tablet 1 tab PO DAILY No Action aspirin 81 mg tablet,delayed release (DR/EC) 81 mg PO DAILY Referrals / Follow Up: Yanira Emery MD [Primary Care Provider, Family Practice] Disposition Disposition (needs filled in before D/C Order can be placed): Home, Self Care
--- NOTE | 2025-05-13 09:28 | CASEMGMT ---
GO Met with patient to complete GO form. GO form and its content were verbally explained and patient's questions were answered to the best of my ability. Patient voiced understanding and signed GO form. Patient provided a copy of signed GO form and original placed in patient's chart. Patient had no further questions. Marge Faria, Discharge Planning Asst
[2025-05-13 10:13] VITALS: BP 146/71; PULSE 74; RESP 16; TEMP 36.4; O2SAT 96
--- NOTE | 2025-05-13 10:21 | PHA.DC_ITS ---
Pharmacy [facility] Counseling Pharmacy Service has performed discharge medication reconciliation and counseling for this patient. The patient's discharge medication list was reviewed for discrepancies and discrepancies were resolved. The patient was counseled on the following discharge medications and changes in medications for homegoing were reviewed. The Reason for Use, instructions for use, and potential side effects were reviewed for all new medications. The patient's questions regarding all of their medications were answered. 1. Aspirin 81 mg PO BID x 4 weeks 2. Acetaminophen 1000 mg PO Q8 3. Meloxicam 7.5 mg PO BID 4. Oxycodone 5-10 mg PO Q4H PRN pain 5. Senna/docusate 2 tablets PO BID until first BM then daily thereafter The patient was able to verbally demonstrate an understanding of their discharge medications. Medications at Discharge Home Medications amlodipine 10 mg-benazepril 40 mg capsule 1 capsule PO DAILY 01/14/14 albuterol sulfate 90 mcg/actuation aerosol inhaler (Proventil HFA) 2 puff inhalation Q6H PRN shortness of breath or wheezing 10/27/20 bimatoprost 0.03 % eye drops 1 drp ophthalmic (eye) DAILY 10/27/20 calcium carbonate (Calcium 600) 600 mg PO DAILY 10/27/20 hydralazine 25 mg tablet 25 mg PO .qd 10/27/20 aspirin 81 mg tablet,delayed release 81 mg PO DAILY 07/19/22 tramadol 50 mg tablet 50 mg PO BID PRN pain 11/07/24 multivitamin (Daily Value tablet) 1 tab PO DAILY 04/14/25 acetaminophen 500 mg tablet 1,000 mg (2 x 500 mg) PO Q8 #0 tabs 05/13/25 aspirin 81 mg chewable tablet 81 mg PO BIDCM #0 tabs 05/13/25 meloxicam 7.5 mg tablet 7.5 mg PO BID 30 days #60 tabs 05/13/25 oxycodone 5 mg tablet 5 - 10 mg (1 - 2 x 5 mg) PO Q4H PRN PRN As needed for pain 7 days #42 tabs 05/13/25 sennosides 8.6 mg-docusate sodium 50 mg tablet (Stimulant Laxative Plus) 2 tab PO BID #0 tabs 05/13/25
--- NOTE | 2025-05-13 10:27 | CASEMGMT ---
Addendum entered by Shawnee Hendrickson 05/13/25 10:40: CHAPO WERNER into pt room, pt with another son and female in room. Pt is aware that her therapy has been set up. Family asks why she didn't go to [facility], pt made them aware that this was her choice. Pt has walker in room. Pt denies any further homegoing needs at this time. Pt ready for dc. Original Note: Spoke with Suman MCKENNA who states pt will need therapy set up. CHAPO WERNER into pt room, pt sitting up in chair in no distress. Pt with son, his sig other and who are present in room. Pt is agreeable to discussion with family present. Nurse also in room. Pt states she does not have therapy set up. She states she would like to go to [facility]. She denies need for a list of other options. Pt states her will transport her. Pt son and sig other brought up concerns regarding pt pain, BM, etc and nurse answered questions. Pt states she does not feel she needs skilled rehab but did check into this prior to OR. TC to [facility], spoke with gayathri Charles made for tomorrow at noon with request for pt to arrive 10 minutes early for paperwork. Placed on dc instructions. Message to Veronica MCKENNA to request order be faxed to [facility] at [phone].
== END 2025-05-13 12:11 | disposition home or self-care (01) ==
LOC: SDC 09:46 → MS3 17:46 → SDC 05-13 11:11 → AC 05-13 11:12 → SDC 05-13 11:12 → MS3 05-13 11:12
PROVIDERS: Anesthesiology; Admitting Provider Specialist; PCP Family Medicine; Referring Provider Specialist; Visit Provider Specialist
DX: M17.11 Unilateral primary osteoarthritis, right knee (principal); J44.89 Other specified chronic obstructive pulmonary disease; Z79.899 Other long term (current) drug therapy; I10 Essential (primary) hypertension; K21.9 Gastro-esophageal reflux disease without esophagitis; E66.812 Obesity, class 2; Z68.38 Body mass index [BMI] 38.0-38.9, adult; Z79.82 Long term (current) use of aspirin; M21.061 Valgus deformity, not elsewhere classified, right knee
CPT/HCPCS: 27447; S2900; 01402; 36415; 73560; 80048; 82040; 82962; 83735; 85025; 85027; 87081; 93005; 94668; 96361; 96365; 96366; 96375; 97162; 97165; 99221; C1776; G0378; J2405

== ENCOUNTER → 2025-05-21 | Outpatient (CLI) | payer MEDICARE, SELFPAY | END | disposition home or self-care (01) | LOC: LABSPEC 16:59 | PROVIDERS: PCP Family Medicine | DX: N39.0 Urinary tract infection, site not specified (principal) | CPT/HCPCS: 87077; 87086; 87088; 87186 ==